=== PATIENT | female | born 1950 | race Caucasian/White ===

== ENCOUNTER 2018-05-24 13:05 | Outpatient (CLI) | payer MEDICARE, BC, SELFPAY ==
--- NOTE | 2018-05-24 14:08 | DI.US_ITS ---
SYMPTOMS/DIAGNOSIS: SWELLING, ? BAKERS CYST, DJD, CALF PAIN RT, M79.661 RIGHT LOWER LEG ULTRASOUND: No marshall's cyst is seen, however, there is fluid seen laterally near the head of the fibula. The deep venous system appears free of thrombus. No superficial thrombophlebitis is seen. IMPRESSION: No evidence of DVT. A 2 cm fluid collection is seen adjacent to the fibular head.
== END 2018-05-24 13:25 ==
PROVIDERS: PCP Internal Medicine; Visit Provider Internal Medicine
DX: R22.41 Localized swelling, mass and lump, right lower limb (principal); M79.661 Pain in right lower leg
CPT/HCPCS: 93971

== ENCOUNTER 2018-05-24 13:30 | Outpatient (REF) | payer MEDICARE, BC, SELFPAY ==
[2018-05-24 22:22] LABS: BUN 16 mg/dL (7-18); CREATININE 0.72 mg/dL (0.55-1.02); Calcium 9.2 mg/dL (8.5-10.1); Chloride 104 mmol/L (98-107); Glucose 87 mg/dL (70-100); Magnesium 2.1 mg/dL (1.8-2.4); Sodium 142 mmol/L (136-145)
== END 2018-05-24 13:50 ==
LOC: NCHCN 13:30
PROVIDERS: PCP Internal Medicine; Visit Provider Internal Medicine
DX: R25.2 Cramp and spasm (principal); I10 Essential (primary) hypertension
CPT/HCPCS: 80048; 83735

== ENCOUNTER 2018-05-28 10:07 | Outpatient (CLI) | payer MEDICARE, BC, SELFPAY ==
--- NOTE | 2018-05-28 09:51 | DI.RAD_ITS ---
SYMPTOM/DIAGNOSIS: RT KNEE PAIN RIGHT KNEE: There are no prior comparison exams There is severe narrowing of the medial femoral tibial joint space with a bone on bone appearance. There are prominent medial spurs as well as sclerosis and subchondral cyst formation, and varus angulation. Loose bodies are seen posteriorly. There are also severe degenerative changes with prominent spurring at the patellofemoral joint. There is a small joint effusion. IMPRESSION: Severe degenerative changes of the medial femoral tibial joint and patellofemoral joint.
== END 2018-05-28 10:27 ==
PROVIDERS: PCP Internal Medicine; Referring Provider Internal Medicine; Visit Provider Student in an Organized Health Care Education/Training Program
DX: M25.561 Pain in right knee (principal); M17.11 Unilateral primary osteoarthritis, right knee
CPT/HCPCS: 73562; 99202; 99214

== ENCOUNTER 2018-07-16 12:48 | Outpatient (REF) | payer MEDICARE, BC, SELFPAY ==
--- NOTE | 2018-07-16 11:20 | PAPFT_PTH ---
PATIENT: Josefa Hidalgo LOC: [facility] U#:[id number] AGE/SX: 67/F ROOM: RE07/16/[address]: Shelley Sanchez : 1950 BED: DIS: 07/16/2018 SPEC #: [id number] RECD: 07/16/18 18:13 STATUS: CARSONBrandon RECurt #: [id number] MATTHEW: 07/16/18 11:[address]: Shelley Sanchez DEPT: [facility] Cytology RECD BY: Shelly Hoang ENTERED: 07/16/18 18:14 SP TYPE: PAPFT OTHR DR: Jevon Restrepo Tissues: 1 - CX/ENDOCX FOR PAP SMEARS Procedures: PAP THIN PREP/UVM Screening HPV DNA PROBE Comments: [id number]
== END 2018-07-16 13:08 ==
LOC: LBN 12:48
PROVIDERS: PCP Internal Medicine; Visit Provider Obstetrics & Gynecology Gynecology
DX: R35.0 Frequency of micturition (principal); Z12.4 Encounter for screening for malignant neoplasm of cervix; Z11.51 Encounter for screening for human papillomavirus (HPV)
CPT/HCPCS: 88142; 87086; 87624

== ENCOUNTER 2018-07-17 00:46 | Outpatient (CLI) | payer MEDICARE, BC, SELFPAY ==
--- NOTE | 2018-07-17 10:55 | DI.MAMMO_ITS ---
SYMPTOM/DIAGNOSIS: SCREENING, Z12.31, PREVENTATIVE MEDICINE, Z00.00 MAMMOGRAMS: Mammograms were interpreted according to the usual protocol including computer analysis with CAD system, tomosynthesis and C view imaging. Comparison is made with 2010. The breasts are composed of heterogeneously dense fibroglandular tissue, breast density, category C. No suspicious masses or suspicious microcalcifications are seen. There has been no significant change. IMPRESSION: Category 1C, negative mammogram. Yearly screening mammography is recommended. [facility] ASSESSMENT OF FINDINGS: Negative. Category 1. Patient will receive a letter notifying them of these results. Bi-RADS category C. The breasts are heterogeneously dense, which may obscure small masses.
== END 2018-07-17 01:06 ==
PROVIDERS: PCP Internal Medicine; Visit Provider Obstetrics & Gynecology Gynecology
DX: Z12.31 Encounter for screening mammogram for malignant neoplasm of breast (principal)
CPT/HCPCS: 77063; 77067

== ENCOUNTER 2018-08-08 08:51 | Outpatient (CLI) | payer MEDICARE, BC, SELFPAY ==
[2018-08-08 10:35] LABS: HCT 42.9 % (36.0-46.0); HGB 14.2 g/dL (12.0-15.5); Mean Corp. HGB Concentration 33.1 g/dL (32.0-36.0); Mean Corpuscular Hemoglobin 31.2 pg (27.0-33.0); Mean Corpuscular Volume 94.3 fL (80-95); Mean Platelet Volume 11.2 fL (8.0-11.0); Platelet Count 168 x1000/uL (130-400); RBC 4.55 m/cumm (4.00-5.20); RBC Distribution Width 13.7 % (11.7-14.6); White Blood Cell Count 5.54 k/cumm (4.4-10.8)
--- NOTE | 2018-08-08 10:47 | W.PREOPHP ---
Assessment and Plan (1) Arthritis of right knee: Current visit: No Status: Chronic Plan: Bone length study x-rays were ordered at today's visit for preoperative planning. Patient had brought a disc containing left knee x-rays done at [facility]. Images were reviewed by Dr. Ames. He discussed left knee also has significant arthritis although patient is not as symptomatic on the left side. Discussed treatment options including corticosteroid injection versus surgical intervention. Offered patient opportunity to have corticosteroid injection in the left knee at time of surgery of right total knee replacement. Patient will decide on day of surgery if she wishes to receive corticosteroid injection in the left knee. Discussed surgery reviewing surgical technique, pertinent anatomy, recovery, benefits and risks including but not limited to risk of infection, blood clot, damage to soft tissue/nerve/blood vessels with patient and family members in detail. After discussion patient gave verbal understanding of risks and wants to proceed with scheduling surgery. Patient and her family members had opportunity to have questions answered to their satisfaction. Dr. Ames reviewed due to patient's deformity he will use OrthoAlign; educated that he may have to adapt surgical technique due to patient's deformity and likely MCL compromise. She will contact office if issues arise, patient will continue to be scheduled for right total knee replacement with Dr. Ames on 08/14/18. Ms. Hidalgo is a 68-year-old female who presents to clinic with her partner, Anuj, and daughter, Leydi, for pre-operative visit for scheduled right TKA with Dr. Ames on 08/14/18. She has previous history of right knee arthroscopy to repair her meniscus done in 2000. Following that surgery she felt her right knee was improved but she was not without occasional bouts of right knee discomfort. However, she suffered increased right knee pain following an injury in February 2018. Injury occurred when she was working up to her waist in water using a metal rake to clear weeds out of [place]. All of a sudden her right foot got caught in the muck, she turned and tried to pull her shoe but had immediate pain in her right knee. Since that time she has continued to have right knee pain that occurs diffusely along medial and lateral aspects of the joint as well as diffusely along the posterior aspect of the joint. Occasionally she will experience calf cramping when her pain is severely aggravated. Prior to presentation to orthopedic clinic she had attended physical therapy for approximately 2 months and was fitted with KT tape and a patella brace due to possible patella maltracking. Attending physical therapy helped to reduce the frequency of her flared pain but did not fully resolve her symptoms. Patient continues to have pain and restricted range of motion that is aggravated by activity such as prolonged walking. On occasion she has heard a grinding sensation elicited with walking and occasional knee swelling. She has been taking Ibuprofen 600 mg qAM with slight pain alleviation. Patient denies symptoms of catching, giving out, numbness or tingling. X-rays obtained at patient's orthopedic appointment revealed severe right knee DJD which Dr. Ames described as notable deformity with scalloping and loss of medial tibia. Due to patient's continued right knee pain and severe right knee DJD patient elected to proceed with surgical intervention. Pertinent Surgical Information Patient's initial referral from primary care provider listed cardiac murmur under past medical history. Patient reports in 2014 she had a different provider conduct her physical and thought they had appreciated murmur. Patient reports she had cardiac work-up in the office including labs and EKG which were negative for acute abnormalities. Since that time patient's primary care provider has not appreciated a cardiac murmur nor requested cardiac consult. She does describe rare episodes of classic acid reflux, denies taking regular medication. Patient denies all cardiac symptoms at today's visit. Denies past medical history of: stroke, cardiac issues, angina, asthma, COPD, sleep apnea, renal issues, liver issues, hepatitis, gastrointestinal issues, ulcers, hyperlipidemia, bleeding disorders, seizures, migraines, anxiety, depression, diabetes, autoimmune disorders, thyroid issues Denies prior complications from surgery or anesthesia. Review of Systems Constitutional Denies fever(s), Denies frequent falls and Denies headache(s) Eyes Denies change in vision ENT Denies dizziness, Denies ear discharge, Denies headache(s), Denies epistaxis, Denies nasal congestion, Denies nasal discharge and Denies sore throat Cardiovascular Denies chest pain, Denies rapid heart rate, Denies edema, Denies irregular heart rhythm, Denies dyspnea, Denies dyspnea on exertion, Denies orthopnea, Denies paroxysmal nocturnal dyspnea and Denies slow heart rate Respiratory Denies cough, Denies excessive phlegm production, Denies dyspnea, Denies dyspnea on exertion and Denies wheezing Gastrointestinal Denies abdominal pain, Denies melena, Denies hematochezia, Denies constipation, Denies diarrhea, Denies nausea and Denies vomiting Genitourinary Denies hematuria, Denies dysuria and Denies urinary urgency Musculoskeletal Reports as per HPI, Denies numbness and Denies tingling Neurologic Denies dizziness, Denies frequent falls, Denies headache(s), Denies numbness and Denies tingling Psychiatric Denies anxiety and Denies depression Allergic/Immunologic Denies wheezing PFSH Medical History Osteopenia (Chronic) Essential hypertension (Chronic) Cystocele (Chronic) Arthritis of right knee (Chronic) Urine incontinence (Acute) Surgical History S/P right knee arthroscopy (Acute) Family History Mother Heart disease Hypertension Father Heart disease Brother Heart disease Brother Heart disease Brother Diabetes Heart disease Brother Heart disease Social History household members: spouse marital status details: partner - Anuj number of children: 2 current occupational status: retired Smoking and Tabacco status: Never alcohol intake: current alcohol intake frequency: holidays/special occasions only substance use type: does not use What is your relationship status?: living with partner Panel score (0-1 are the most socially isolated patients): 1 Seatbelt use: always Female Reproductive History Menstrual Menopause type: natural History History 2 Para Hx # Term Pregnancies 2 Multiple births Hx # Pregnancies Ectopic pregnancies AB induced Hx Number of Living Children AB spontaneous Meds Home Medications Medication Instructions Recorded Confirmed Type ibuprofen 200 mg capsule 200 mg PO QID PRN 05/28/18 08/08/18 History amlodipine 5 mg tablet 5 mg PO DAILY 07/16/18 08/08/18 History herbal complex no.174 [Echinacea 1 drp PO DAILY 08/08/18 08/08/18 History and Goldenseal] multivitamin 1 tab PO DAILY 08/08/18 08/08/18 History Allergies Allergy/AdvReac Type Severity Reaction Status Date / Time lisinopril AdvReac Mild cough Verified 08/08/18 21:42 Exam Const General: cooperative and no acute distress HENMT Head: normal to inspection, normocephalic and atraumatic Ears: external ears normal General nose exam: external nose normal and no nasal discharge Face and sinus: face symmetric Eyes General: appearance normal, both eyes and all related structures Neck Neck: trachea midline Lymphatic: no lymphadenopathy noted Resp Effort & Inspection: normal respiratory effort and able to speak in complete sentences Auscultation: clear to auscultation bilaterally, no rales, no rhonchi and no wheezes Cardio Heart Sounds: S1 normal, S2 normal, no murmurs and no rubs Skin General skin exam: no rashes or lesions noted Extrem Other: Right knee examination: Tenderness to palpation along medial joint line. Skin is intact without signs of erythema or calor. There is slight edema noted inferior to joint line. No signs of effusion are noted. Active range of motion is short of full extension by 10 degrees and yields flexion of 105 degrees with crepitus and discomfort elicited. Knee is stable to valgus and varus stress. Muscle strength was 5 out of 5 and did not elicit pain. Results Labs : 08/08/18 10:07 08/08/18 10:07 Laboratory Results - last 24 hr 08/08/18 10:07 WBC 5.54 RBC 4.55 Hgb 14.2 Hct 42.9 MCV 94.3 MCH 31.2 MCHC 33.1 RDW 13.7 Plt Count 168 MPV 11.2 H
[2018-08-08 11:19] LABS: Anion Gap 6.4 mmol/L (3-11); BUN 16 mg/dL (7-18); CO2 30.6 mmol/L (21.0-32.0); CREATININE 0.73 mg/dL (0.55-1.02); Calcium 9.2 mg/dL (8.5-10.1); Chloride 104 mmol/L (98-107); Glucose 85 mg/dL (70-100); Potassium 4.3 mmol/L (3.5-5.1); Sodium 141 mmol/L (136-145)
== END 2018-08-08 09:11 ==
PROVIDERS: PCP Internal Medicine; Visit Provider Student in an Organized Health Care Education/Training Program
DX: M25.561 Pain in right knee (principal); M17.11 Unilateral primary osteoarthritis, right knee; Z01.818 Encounter for other preprocedural examination; I10 Essential (primary) hypertension
CPT/HCPCS: 36415; 80048; 85027

== ENCOUNTER 2018-08-08 11:19 | Outpatient (CLI) | payer MEDICARE, BC, SELFPAY ==
--- NOTE | 2018-08-08 11:16 | DI.RAD_ITS ---
SYMPTOM/DIAGNOSIS: PREOP FOR RT KNEE REPLACEMENT LEG LENGTH: In the right knee, there is marked narrowing of the medial femoral tibial joint space with deformation of the articular surfaces. Periarticular spurring is also noted. In the left knee, there is moderately severe narrowing in the medial femoral joint space with periarticular spurring seen both medially and laterally. The right lower extremity measures 81.1 cm. The left lower extremity measures 81.6 cm. IMPRESSION: Bilateral osteoarthritis of the knees.
== END 2018-08-08 11:39 ==
PROVIDERS: PCP Internal Medicine; Visit Provider Physician Assistant
DX: M17.0 Bilateral primary osteoarthritis of knee (principal); M21.70 Unequal limb length (acquired), unspecified site
CPT/HCPCS: 36415; 80048; 85027; 77073

== ENCOUNTER 2018-08-14 07:38 | Inpatient (IN) | payer MEDICARE, BC, SELFPAY ==
[2018-08-14] VITALS (11 sets, daily range): BP systolic 93–139; BP diastolic 45–84; PULSE 58–79; RESP 11–19; TEMP 36.1–36.7; O2SAT 92–96
[2018-08-14] MEDS: Acetaminophen 500 MG TAB 1000 MG PO ×3 (06:35→19:31)
[2018-08-14] MEDS: oxyCODONE-CR 10 MG TABCR PO (06:35)
[2018-08-14] MEDS: Gabapentin 300 MG CAP PO ×2 (06:35→22:43)
[2018-08-14] MEDS: Celecoxib 200 MG CAP 400 MG PO (06:35)
[2018-08-14] MEDS: Lactated Ringers 1,000 ML 80 ML IV ×3 (06:38→17:53)
[2018-08-14] MEDS: Bupivacaine LIPOSOME/PF 133 MG/10 ML VIAL IJ ×2 (07:25→08:59)
[2018-08-14] MEDS: Bupivacaine 0.5% Pres-Free 30 ML VIAL (07:25)
[2018-08-14] MEDS: methylPREDNISolone ACETATE 80 MG/ML VIAL (07:51)
[2018-08-14] MEDS: Bupivacaine 0.25% Pres-Free 30 ML VIAL ×2 (07:51→08:59)
[2018-08-14] MEDS: Normal Saline 50 ML (08:59)
[2018-08-14] MEDS: Ketorolac 30 MG/ML VIAL (08:59)
--- NOTE | 2018-08-14 14:16 | IN_ITS ---
Date of service: 08/14/18 Time of Service: 13:45 PT Notes Inpatient Physical Therapy Evaluation Date: 08/14/18 Referring Doctor: Dr. Ames PT Orders: PT CONSULT: s/p right TKA Precautions: fall, standard Patient Profile/Admitting Diagnosis: Patient admitted status post right TKA, performed earlier today. PMHX: Hypertension. Osteopenia. Patient is status post partial medial meniscectomy performed in 2000 Social History/Home Situation: Patient lives with her significant other in a multilevel home. She has several steps to enter, although has had a ramp installed, which she plans to use upon return home. She has had extensive snow removal performed to allow her to get her car close to her home. She also has a niece who is a home health physical therapist, and will be meeting her at the home to assist her in upon discharge. She has been performing an independent exercise program at outpatient PT up until surgery. She normally ambulates independently and is active in the community. Equipment Owned/DME: None Subjective: Josefa states that she is feeling great. She has no pain to speak of, and is anxious to get up and test her new knee. Objective: General Observation: Resting in bed with IV and LUE, Feldman catheter in place, Lacho wrap to right lower extremity, Cryo/Cuff to right knee Mental Status: A and O x3 Pain: 0/10 ROM: Right Upper Extremity: WFL Left Upper Extremity: WFL Right Lower Extremity: Right knee range of motion allows -5 degrees extension to 80 degrees flexion. Left Lower Extremity: WFL. Left knee range of motion was not assessed, with patient reporting injection performed during surgery. Strength: Right Upper Extremity: WFL Left Upper Extremity: WFL Right Lower Extremity: Patient is able to perform SLR with minor extension lag. She easily performs L AQ with right quad strength at least 3/5. Ankle dorsiflexion is 3/5 or greater. Left Lower Extremity: WFL Sensation: Intact throughout the distal RLE Bed Mobility/Transfers: Supine to sit: Supervision with head of bed at 30 degrees Sit to stand: Supervision Stand to sit: Supervision Bed to chair: Supervision with FW W Gait: Patient ambulates 100 feet with FW W and contact-guard. She requires intermittent cues for gait mechanics and equipment management. Stairs: Patient manages therapeutic stairs (6 inches x4, 4 inches x3) with bilateral upper extremity support to rails, step-to pattern and contact-guard. He requires cues for technique. Balance: Static Sitting: Normal Dynamic Sitting: Normal Static Standing: Good Dynamic Standing: Fair Special Tests: Mobility Limitations Standardized Measure [facility] AM-PAC 6 clicks Basic Mobility Inpatient Short Form: Raw Score: 19 CMS Score: 42% deficit Informed Consent/Education: Patient instructed in purpose of PT consult and plan of care. Patient was instructed in early therapeutic exercises, consisting of quadricep setting activities, SLR and L AQ. She was instructed in positioning to avoid prolonged positioning in flexed position, and demonstrates good understanding. She does not have her postop packet with her, although her partner will be bringing that in this evening. Assessment: Patient is a 68 year old female referred to physical therapy services with the diagnosis of right knee OA, status post right TKA performed earlier today. Patient presents with clinical signs and symptoms consistent with postop status, as demonstrated by the following impairment level findings: 1. Decreased right knee range of motion 2. Decreased right lower extremity strength 3. Decreased balance 4. Decreased activity tolerance Impairments are contributing to the following functional limitations: 1. Unable to independently manage stairs 2. Unable to tolerate community distance ambulation Patient is assessed as Low [id number] based on the following: History: Healthy and active 68-year-old female with right knee OA, status post right TKA performed earlier today. Patient has made several adjustments in her home situation to allow for easy transition back home with assistance from her partner. She does have significant osteoarthritis in the left knee, which may pose as a complicating factor in her recovery. Examination: Functional limitations as noted above Presentation: Stable Decision Making: Low complexity Goals: Goals X1 week 1. Supine-Sit: Supervision 2. Sit-Supine: Supervision 3. Sit-Stand : Supervision 4. Stand-Sit: Supervision 5. Bed-Chair: Supervision with FWW 6. Chair-Bed : Supervision with FWW 7. Gait : Supervision with FWW x 150' 8. Stairs: Supervision with bilateral upper extremity support to rails 9. Independent with home exercise program Plan of Care/Treatment Plan: 1-2x/day, 7 days/week x 1 week. Plan of care has been reviewed with the PHARMACY CUSTOMER CARE SPECIALIST providing the service under Physical Therapy direction. Initiate Physical Therapy intervention for strengthening, bed mobility, transfers, gait, stairs, balance training, use of assistive device. DISCHARGE RECOMMENDATIONS: Home with FW W TREATMENT CODE/TIME: 145?215 ([id number])
[2018-08-14] MEDS: Normal Saline Flush 10 ML SYR IV (19:31)
[2018-08-14] MEDS: Aspirin E.C. 81 MG TABEC PO (19:31)
[2018-08-14] MEDS: Celecoxib 100 MG CAP 200 MG PO (19:31)
--- NOTE | 2018-08-14 21:16 | W.PM.OP ---
Date of service: 08/14/18 Time of Service: 10:16 Operative Note DATE OF PROCEDURE: 08/14/18 PRE-OP DIAGNOSIS: Right Knee Arthritis POST-OP DIAGNOSIS: same PROCEDURE: Right Total Knee Arthroplasty with Intraoperative Navigation SURGEON: Maximiliano Ames DIGITAL PHOTO PRINTER: Delia Nielsen ANESTHESIA: regional and spinal ESTIMATED BLOOD LOSS: 200 PATHOLOGY: none sent TOURNIQUET TIME: 27 COMPLICATIONS: None Patient was transported to: PACU Patient's condition: stable Implants: 1. Depuy Attune Posterior Stabilized Femoral Component, Size 4 2. Depuy Attune Fixed Platform Tibial Component, Size 3 3. Depuy Attune 4 x 10 mm fixed, Stabilized Poly 4. Depuy Attune Patellar Component, Size 35 mm Indications: I have seen Josefa in clinic for symptoms of knee arthritis, confirmed with radiographic findings. Josefa has exhausted nonoperative methods and was having significant limitations in daily function and desired better function and less pain. I discussed the technical details of a knee replacement. I explained the risks of the procedure to include, but not limited to, bleeding, infection, pain, stiffness, fracture, damage to nerves and vessels, damage to muscles and tendons, loosening, need for repeat procedure, blood clot and cardiopulmonary demise. Despite these risks, she elected to proceed. Findings: There was significant signs of arthritis throughout the knee. The medial tibia was scalloped with a significant deformity centrally within the proximal, medial tibia. Procedure Description: Josefa was greeted in the preoperative holding area where the correct side was identified and marked. The consent was reviewed with the patient and signed. The history and physical was updated. All questions were answered. Preoperative mediacations were administered: Acetaminophen 1000mg, Celebrex 400mg, Gabapentin 300mg, and Oxycontin 10mg. An adductor canal block was then administered by the anesthesia team in the PACU. She was taken back to the operating room. A spinal anesthestic was then administered. The patient was placed into the supine position on the operating room table. A nonsterile tourniquet was placed high onto the leg but only used for cementing. Posts were placed for positioning during the procedure. All bony prominences were well padded. Prophylactic antibiotics in the form of cefazolin were administered. 1g of Tranxemic Acid was given intravenously within 30 minutes of incision. The right leg was then prepped with Chloraprep and draped in a standard fashion with impervious stockinette and extremity drape with Iodine impregnated skin protection. A timeout to confirm correct identity, side and site, procedure, allergies, anesthesia, and medical concerns was performed. With the knee in some flexion, a midline incision was made overlying the knee. Full thickness skin flaps were raised once the extensor mechanism was encountered. These were raised medially and laterally. Any bleeding was controlled with electrocautery. Once the extensor mechanism was fully exposed, a medial parapatellar arthrotomy was performed in a flexed position. All bleeding from the arthrotomy and the geniculate arteries was coagulated. A medial subperiosteal peel was performed with electrocautery to the midcoronal plane. Due to the significant varus deformity the entire medial tibial plateau was exposed. The fat pad was removed while keeping the patellar tendon protected. The anterior distal femur synovium was removed for later visualization. The ACL and PCL were resected and the anterior horn of the lateral meniscus was transected. The knee was then flexed with the patella everted. Large osteophytes from the tibia were removed. Large osteophytes from the femur were removed. A single starting pin was then placed 1cm anterior to the PCL insertion and the notch in the direction of the femoral head. The OrthoAlign device was applied over the pin. It was oriented to be in line with the epicondylar axis and the trochlear groove. It was then pinned into place. The navigation computer was then turned on and calibrated. The distal femur cut was set at 0 degrees varus/valgus and 2.5 degrees flexion. The distal femur cutting guide then was positioned for a 11 mm cut. The distal femur was cut with an oscillating saw while protecting the soft tissues. The tibia was then addressed. The OrthoAlign device was placed over the tibial tubercle and medial tibia and secured into position. Once again, OrthoAlign was calibrated and then set for a 0 degree varus/valgus cut and 3 degrees of posterior slope. With this locked into position, the cut thickness stylus was used to assess cut thickness. The medial side, most involved side, was set for a 2mm cut. The medial, proximal tibia was noted to be scalloped where the central portion of the proximal, medial tibia was worn into the tibia making the cut quite on balance. The guide was then held in position and pinned into place with 2 additional pins and a cross pin for stability. The medial and lateral collateral ligaments were protected and the cut was performed. With this completed, it was assessed and noted to be of appropriate dimensions. The guide and OrthoAlign was removed. A spacer block was inserted and the knee was brought into extension. The 8 mm spacer block provided full extension, without hyperextension and with stability of both the medial and lateral collateral ligaments was assessed. The pins from the femur and the tibia were then removed. The distal femur was then sized. The anterior stylus was placed onto the lateral ridge of the anterior femur. This indicated a size 4 femur. The external rotation of the guide was adjusted to 5 degrees to match the epicondylar axis, perpendicular to [place]?s line. The 4-in-1 cutting guide was the placed. The posterior medial femur cut was evaluated and appeared of good thickness. The spacer block was inserted underneath the cutting guide and stability was confirmed in 90 degrees of flexion. An zoran wing was used to confirm appropriate position of the anterior cut to avoid notching. This cutting guide was ensured to be flush on the cut surface and then pinned into place with headed pins. While protecting the soft tissues, quad tendon, and collateral ligaments, the anterior and posterior cuts were performed with a saw. The central two pins were removed and the posterior and anterior chamfers were cut next. The notch-cutting guide was placed. This was pinned to lateralize the femoral component as much as possible while keeping it flush on the cut surface. This was then pinned into position. A reciprocating saw was used to make the notch cut. A rasp smoothed the cut surfaces. A trial posterior stabilized femoral component was then inserted, impacted down to the cut surfaces, and the lug holes were drilled. A provisional trial tibial component was placed and the knee was brought through range of motion. The polyethylene was trialed until there was good flexion and extension with excellent stability to the medial and lateral collaterals. The patella was tracking without thumbs. The tibial cut surface was fully exposed. The medial and lateral menisci were removed. The tibia was then sized as a 3. The tibia had been previously marked during trialing to correspond to the center of the tibial component to help with rotation. The trial was aligned to this delia, approximately rotated to the medial 1/3rd of the tibial tubercle. The trial was pinned into place. The tibia was prepared with a reamer and a keel punch. The knee was then brought into extension and the patella was measured as 26 mm. Using the patellar clamp and cut guide, this was resected to a flat surface with at least 13mm of thickness remaining. The size 35 mm patella fit the best. This was oriented and then clamped into position. The lugs were drilled. The trial components were removed. The final components, except for the polyethylene were opened on the back table. The periosteal and capsular tissues, especially posteriorly, around the knee were then systematically injected with a periarticular cocktail consisting of 50cc 0.25% Marcaine, 30mg Ketorolac, 20cc of Exparal and 50cc of injectable saline. The tourniquet was then inflated to 275mmHg. The knee was thoroughly irrigated with a pulse lavage and dried. On the back table, with the implants opened, the cement was mixed. 2 batches of antibiotic laden cement were prepared with vacuum assistance. After the cement was ready a small amount was placed on to the back side of the tibial component at the keel. A small amount was placed onto the posterior flange of the femur. Cement was manual pressurized and impregnated into the cut surface of the tibia. The tibial component was then inserted into the cut surface and impacted into position. Excess cement was removed and the component was reimpacted. Again, excess cement was removed and our attention was then turned to the femur. The femoral cut surface was once again dried and cement was manually impacted into the cut surface. The femoral component was lined with the lug holes and impacted. Excess cement was removed. It was ensured to be down against the cut surface. The trial polyethylene was then inserted and the leg was brought out into full extension for the duration of the cement curing process, approximately 15min. Cement was lastly manually impacted into the cut surface of the patella and the patellar button was clamped into position and held. During this process attention was turned to the gutters of the knee and for all interfaces for any excess cement. After the cement had finally cured, approximately 15min, the clamp was removed from the patella and the knee was taken through range of motion. A size 10 mm polyethylene component provided the best range of motion and stability with less than 2mm gapping with medial and lateral stress and full extension without significant hyperextension. The patella was tracking with a no-thumbs technique. The trial poly was removed and once again the knee was checked for any loose, excess, or errant cement. The poly component was then inserted and impacted into position after cleaning and drying the tibial tray. The capsule was then reapproximated with a No. 1 Vicryl at multiple locations. The capsule was finally closed with a No. 2 Stratafix, barbed suture. The tourniquet was then released and the arthrotomy appeared watertight without significant bleeding. The second dosing of 1g TXA was started. Deep tissues were then reapproximated with 0 Vicryl and 2-0 Vicryl. The skin was closed with a running 3-0 Monocryl in a subcuticular fashion. This was reinforced with skin glue. A Mepilex silver dressing was applied along with a dgek-yf-eoupf DAVEY wrap. A CryoCuff was applied. Josefa was transferred to the hospital bed without difficulty an suffering no apparent complication. Josefa has a good prognosis. Physical therapy will start today and without restrictions, weight-bearing as tolerated. Aspirin 81mg BID will be used for DVT prophylaxis.
[2018-08-15 03:25] VITALS: BP 116/75; PULSE 70; RESP 16; TEMP 36.6; O2SAT 94
[2018-08-15] MEDS: Normal Saline Flush 10 ML SYR IV (03:54)
[2018-08-15] MEDS: HYDROmorphone 2 MG/ML VIAL 0.5 MG IVP (03:54)
[2018-08-15] MEDS: Lactated Ringers 1,000 ML 80 ML IV (07:03)
[2018-08-15 07:50] VITALS: BP 133/70; PULSE 69; RESP 19; TEMP 37.2; O2SAT 95
[2018-08-15] MEDS: amLODIPine 5 MG TAB PO (08:55)
[2018-08-15] MEDS: Celecoxib 100 MG CAP 200 MG PO (08:55)
[2018-08-15] MEDS: Multivitamin TAB 1 TAB PO (08:56)
[2018-08-15] MEDS: Pantoprazole 40 MG TABCR PO (08:56)
[2018-08-15] MEDS: Docusate Sodium 100 MG CAP PO ×2 (08:56→13:42)
[2018-08-15] MEDS: Acetaminophen 500 MG TAB 1000 MG PO ×2 (08:56→13:39)
[2018-08-15] MEDS: Aspirin E.C. 81 MG TABEC PO (08:57)
--- NOTE | 2018-08-15 11:17 | INDS_ITS ---
Date of service: 08/15/18 Time of Service: 10:00 PT Notes Date: 08/15/18 Referring Doctor: Dr. Ames PT Orders: PT CONSULT: s/p right TKA Precautions: fall, standard Treatment Dates: 08/14/18-08/15/18 Patient Profile/Admitting Diagnosis: Patient admitted status post right TKA, performed yesterday. She's participated in 2 PT sessions in the past two days. PMHX: Hypertension. Osteopenia. Patient is status post partial medial meniscectomy performed in 2000 Social History/Home Situation: Patient lives with her significant other in a multilevel home. She has several steps to enter, although has had a ramp installed, which she plans to use upon return home. She has had extensive snow removal performed to allow her to get her car close to her home. She also has a niece who is a home health physical therapist, and will be meeting her at the home to assist her in upon discharge. She has been performing an independent exercise program at outpatient PT up until surgery. She normally ambulates independently and is active in the community. Equipment Owned/DME: [facility] Subjective: Josefa states that she is feeling great. She's out walking the halls with nursing at initiation of session, and states that she walked with nursing last night as well. Objective: General Observation: IV in LUE, Feldman catheter in place, Lacho wrap to right lower extremity Mental Status: A and O x3 Pain: 0/10 ROM: Right Upper Extremity: WFL Left Upper Extremity: WFL Right Lower Extremity: Right knee range of motion allows 0 degrees extension to 90 degrees flexion. Left Lower Extremity: WFL. Left knee range of motion was not assessed, with patient reporting injection performed during surgery. Strength: Right Upper Extremity: WFL Left Upper Extremity: WFL Right Lower Extremity: Patient is able to perform SLR without extension lag. She easily performs L AQ with right quad strength at least 3/5. Ankle d orsiflexion is 3/5 or greater. Left Lower Extremity: WFL Sensation: Intact throughout the distal RLE Bed Mobility/Transfers: Supine to sit: Supervision with head of bed at 30 degrees Sit to stand: independent Stand to sit: independent Bed to chair: Supervision with FW W Gait: Patient ambulates 100 feet x 2 with FW W and supervision. She requires intermittent cues for gait mechanics, demonstrating good step-through pattern. Stairs: Patient managed therapeutic stairs on 08/14/17 as follows: (6 inches x4, 4 inches x3) with bilateral upper extremity support to rails, step-to pattern and contact-guard. Balance: Static Sitting: Normal Dynamic Sitting: Normal Static Standing: Good Dynamic Standing: Fair Treatment: This session consisted of reevaluation, followed by noted above. Patient was instructed in the following activities, which were also indicated in postop packet for home completion for 10 repetitions, 3 times per day: 1. Ankle pumps 2. Quad sets 3. Glutes sets 4. SLR 5. LAQ 6. Heel slide Assessment: Patient is a 68 year old female referred to physical therapy services with the diagnosis of right knee OA, status post right TKA performed 08/14/18. She has made excellent gains in her mobility and safety, and is now appropriate for discharge home as all rehab goals have been met. Patient expresses her desire to participate in home health PT, which will be beneficial for improvements IN range of motion, strength and functional mobility after total knee replacement. Goals: Goals X1 week 1. Supine-Sit: Supervision (met) 2. Sit-Supine: Supervision(met) 3. Sit-Stand : Supervision(met) 4. Stand-Sit: Supervision(met) 5. Bed-Chair: Supervision with FWW(met) 6. Chair-Bed : Supervision with FWW(met) 7. Gait : Supervision with FWW x 150'(met) 8. Stairs: Supervision with bilateral upper extremity support to rails(met) 9. Independent with home exercise program (met) Plan of Care/Treatment Plan: D/C from PT in acute care setting DISCHARGE RECOMMENDATIONS: Home without equipment needs. Recommend PT TREATMENT CODE/TIME: 10:00-10:30 ([id number], [id number]) Jessica Duran, PT, DPT [facility]
[2018-08-15 11:50] VITALS: BP 115/62; PULSE 75; RESP 18; TEMP 37.3; O2SAT 96
--- NOTE | 2018-08-15 12:24 | W.PM.DS.N ---
Date of service: 08/15/18 Time of Service: 12:24 DS: Diagnosis Discharge Diagnosis (1) Arthritis of right knee: Status: Chronic Discharge Plan Disposition Patient Disposition: HOME W/HOME HEALTH SERVICE Condition: Good Discharge Details Reason For Visit: RIGHT KNEE DJD Admit Date/Time: 08/14/18 07:38 Admit Provider: Maximiliano Ames Attending Provider: Maximiliano Ames Primary Care Provider: Jevon Restrepo Hospital Course Hospital Course: Patient was admitted to the medical/surgical floor following the procedure. It was tolerated well without any notable medical, surgical, or anesthetic complications. Mobilization began postoperatively. The bright catheter was removed and voiding spontaneously. Vitals were stable. Physical therapy worked with the patient and was cleared for discharge home. No acute medical issues. Home Meds and New Rx's Prescriptions: New acetaminophen 500 mg tablet 1,000 mg PO Q8H PRN (Reason: pain) Qty: 90 RF: 3 ibuprofen 600 mg tablet 600 mg PO TID PRNQty: 90 RF: 3 tramadol 50 mg tablet 50 mg PO Q6H PRN (Reason: pain) Qty: 8 RF: 0 Continued amlodipine 5 mg tablet 5 mg PO DAILY RF: 0 multivitamin Tablet 1 tab PO DAILY RF: 0 Echinacea and Goldenseal 450 mg Capsule 1 drp PO DAILY RF: 0 Discontinued ibuprofen 200 mg capsule 200 mg PO QID PRNRF: 0 Discharge Instructions Instructions: Knee Replacement (DC) Additional Instructions: Dr. Ames?s Total Knee Discharge Instructions Activity: The most important activity is to walk. You should try to take short walks a few times a day. It is important that when resting you work on keeping the knee straight. Avoid putting a pillow behind the knee as this will encourage flexion. Work on range of motion exercises as provided by Physical Therapy. - You should wear the EVELINE hose on both legs for 2-4 weeks. Dressing: The initial DAVEY wrap may come off on the day after discharge (08/16) or sooner if desired. Keep the surgical dressing in place for at least one week. After the first week it may be removed and replace with light gauze and tape or nothing. It may get wet after 3 days but avoid soaking the dressing. If it gets wet, just lightly pat dry. Medications: - You should take Tylenol and anti-inflammatory (Ibuprofen) as your primary pain control medications - You have been prescribed a stronger pain medication (Tramadol) for breakthrough pain, take as needed as prescribed. - You will be taking Aspirin 81mg twice a day for DVT prevention unless instructed otherwise. - If you have constipation you should take Colace or Miralax (both [id number]). It takes most people 3-4 days to have a bowel movement. Follow-up: 2 weeks 1. Encounter Date and Reason I certify that JOSEFA LUCERO was seen by Maximiliano Ames MD on 08/15/18 and that I had a [id number] encounter with this patient that meets the physician face to face encounter requirements. 2. Clinical Findings Supporting Skilled Need and Homebound Status I certify that home health services are medically necessary, include either intermittent intermediate and/or physical/speech therapy, and that this patient is homebound in that absences from the home require considerable and taxing effort and are infrequent or of short duration, or are attributable to the need to receive medical care. [X] (a) Attached documentation from encounter provides clinical findings supporting skilled need and homebound status (including what assistance patient requires to leave the home). The encounter with the patient was in whole, or in part, for the following medical condition, which is the primary reason for home health care: RIGHT KNEE DJD Usp: Physical Therapy: Josefa would benefit from home based physical therapy to address her significant limitations in gait, mobility, and strength. She is s/p R TKA and had significant preoperative limitations. She should focus on ambulation, gait training, and knee extension. Speech Therapy: Homebound: Josefa is homebound due to her recent surgery resulting in weakness and gait alterations. She is unable to leave her home unassisted. 3. Certification and Authentication I certify that I composed the above information based on my clinical judgement relating to this patient's medical condition and, if applicable, clinical findings communicated to me by the NPP or inpatient physician who performed the Home Health Referral. All further orders will be obtained through Dr. Ames Stand Alone Forms: Nursing Discharge Form Referrals: Maximiliano Ames MD [ [facility] STAFF PHYSICIAN] - 08/29/18 2:45 pm Activity:: Activity as Tolerated Equipment/Supplies:: Walker Diet:: As Tolerated Discharge Orders Discharge Orders: Discharge Order (Routine); Ordered 08/15/18 Ordered By: Maximiliano Ames DS: Data Vitals/I&O Vitals and I&O: Vital Signs Temperature 37.2 C 08/15/18 07:50 Temperature Source Tympanic 08/15/18 07:50 Pulse 69 08/15/18 07:50 Pulse Rhythm Regular 08/14/18 11:21 Respiratory Rate 19 08/15/18 07:50 Respiratory Effort 08/14/18 19:33 Respiratory Depth Normal 08/14/18 19:33 Respiratory Pattern Normal 08/14/18 19:33 Blood Pressure 133/70 08/15/18 07:50 Pulse Oximetry 95 08/15/18 07:50 Respiratory End-tidal CO2 14 08/14/18 10:20 Oxygen Delivery Method Room Air 08/15/18 07:50 Oxygen Flow Rate 0 08/15/18 07:50 Pain Level 6 08/15/18 08:56 Comment 08/15/18 03:25 Intake & Output 08/14/18 08/15/18 08/15/18 23:59 11:59 23:59 Intake Total 2401.333 / 4621.333 3329.333 / 3329.333 Output Total 3050 / 3350 2650 / 2950 300 / 2950 Balance -648.667 / 1271.333 679.333 / 379.333 -300 / 379.333 Intake: IV 681.333 / 2301.333 1489.333 / 1489.333 Oral 1720 / 2320 1840 / 1840 Output: Urine 3050 / 3150 2650 / 2950 300 / 2950 Other: Urine Color Yellow Yellow Yellow Urine Appearance Clear Clear Clear Urine Odor None Comment Void x1 in the toilet. Voiding Methods Toilet COUNT INCLUDES THE [facility] Medical History Osteopenia (Chronic) Essential hypertension (Chronic) Cystocele (Chronic) Arthritis of right knee (Chronic) Urine incontinence (Acute) Surgical History S/P right knee arthroscopy (Acute) Family History Mother Heart disease Hypertension Father Heart disease Brother Heart disease Brother Heart disease Brother Diabetes Heart disease Brother Heart disease Social History household members: spouse marital status details: partner - Anuj number of children: 2 current occupational status: retired Smoking and Tabacco status: Never alcohol intake: current alcohol intake frequency: holidays/special occasions only substance use type: does not use What is your relationship status?: living with partner Panel score (0-1 are the most socially isolated patients): 1 Seatbelt use: always Female Reproductive History Menstrual Menopause type: natural History History 2 Para Hx # Term Pregnancies 2 Multiple births Hx # Pregnancies Ectopic pregnancies AB induced Hx Number of Living Children AB spontaneous
--- NOTE | 2018-08-15 14:46 | PDOC.CMPRO ---
- If Service Date Differs Date of service: 08/15/18 Time of Service: 14:46 Care Management Progress Note CM met with patient and her spouse in the room. Josefa is alert and engaged she states that she is ready to be discharged home. She has a walker at home she does not need any additional equipment. She will have new home health services for PT and OT. CM contacted home health and provided update. Josefa states she lives on one floor and will not need to do stairs. Her spouse Anuj will transport her home at time of discharge. CM provided education related to discharge plan and follow up. Education related to ask me three and self management. A: Josefa was admitted with a right total knee r/t OA. P: Josefa is being discharged home today, with new home health services PT/OT. CM contacted [facility] [place] and provided referral.
--- NOTE | 2018-08-15 15:00 | CMPROGNOTE_ITS ---
- If Service Date Differs Date of service: 08/15/18 Time of Service: 14:46 Care Management Progress Note CM met with patient and her spouse in the room. Josefa is alert and engaged she states that she is ready to be discharged home. She has a walker at home she does not need any additional equipment. She will have new home health services for PT and OT. CM contacted home health and provided update. Josefa states she lives on one floor and will not need to do stairs. Her spouse Anuj will tr ansport her home at time of discharge. CM provided education related to discharge plan and follow up. Education related to ask me three and self management. A: Josefa was admitted with a right total knee r/t OA. P: Josefa is being discharged home today, with new home health services PT/OT. CM contacted [facility] and provided referral.
== END 2018-08-15 15:58 | disposition home health service (06) | DRG 470 ==
LOC: MS 09:45
PROVIDERS: Admitting Provider Student in an Organized Health Care Education/Training Program; PCP Internal Medicine; Visit Provider Student in an Organized Health Care Education/Training Program
PROC: 0SRC0J9 Replacement of Right Knee Joint with Synthetic Substitute, Cemented, Open Approach (ICD-10-PCS; CPT 27447; principal; 2018-08-14 07:30)
PROC: 0SRC0J9 Replacement of Right Knee Joint with Synthetic Substitute, Cemented, Open Approach (ICD-10-PCS; CPT 20985; 2018-08-14 07:30)
DX: M17.11 Unilateral primary osteoarthritis, right knee (principal); Z96.651 Presence of right artificial knee joint; M21.161 Varus deformity, not elsewhere classified, right knee; I10 Essential (primary) hypertension; M85.80 Other specified disorders of bone density and structure, unspecified site
CPT/HCPCS: 20985; 27447; 64447; 76942; 97110; 97161; 97530; NC; J0690; J1040; J1885; J2250; J2405; J3010

== ENCOUNTER 2018-08-29 14:41 | Outpatient (CLI) | payer MEDICARE, BC, SELFPAY ==
--- NOTE | 2018-08-29 14:25 | DI.RAD_ITS ---
SYMPTOMS/DIAGNOSIS: S/P RIGHT TOTAL KNEE ARTHROPLASTY RIGHT KNEE: The patient is status post right TKA, the prosthesis in good position, surrounding bone intact with no interval change when compared with prior images. LEG LENGTH: The left leg measures 79 cm, the right leg 80 cm. 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
== END 2018-08-29 15:01 ==
PROVIDERS: PCP Internal Medicine; Visit Provider Student in an Organized Health Care Education/Training Program
DX: M17.11 Unilateral primary osteoarthritis, right knee (principal); Z96.651 Presence of right artificial knee joint; Z47.1 Aftercare following joint replacement surgery; M17.12 Unilateral primary osteoarthritis, left knee
CPT/HCPCS: 73560; 77073

== ENCOUNTER → 2018-09-26 10:10 | Outpatient (BNVA) | payer MEDICARE, BC, SELFPAY | PROVIDERS: PCP Internal Medicine; Referring Provider Internal Medicine; Visit Provider Student in an Organized Health Care Education/Training Program | DX: M17.12 Unilateral primary osteoarthritis, left knee (principal); Z47.1 Aftercare following joint replacement surgery; Z96.651 Presence of right artificial knee joint; Z98.890 Other specified postprocedural states ==

== ENCOUNTER → 2018-10-22 13:23 | Outpatient (BNVA) | payer MEDICARE, BC, SELFPAY | PROVIDERS: PCP Internal Medicine; Referring Provider Internal Medicine; Visit Provider Student in an Organized Health Care Education/Training Program | DX: Z47.1 Aftercare following joint replacement surgery (principal); Z96.651 Presence of right artificial knee joint ==

== ENCOUNTER → 2018-11-19 08:18 | Outpatient (BNVA) | payer MEDICARE, BC, SELFPAY | PROVIDERS: PCP Internal Medicine; Referring Provider Internal Medicine; Visit Provider Student in an Organized Health Care Education/Training Program | DX: M17.11 Unilateral primary osteoarthritis, right knee (principal); Z96.651 Presence of right artificial knee joint; Z47.1 Aftercare following joint replacement surgery; I10 Essential (primary) hypertension | CPT/HCPCS: 99213 ==

== ENCOUNTER 2019-08-12 08:51 | Outpatient (CLI) | payer MEDICARE, BC, SELFPAY ==
--- NOTE | 2019-08-12 08:30 | DI.RAD_ITS ---
EXAM: XR KNEE RT 2V AP,LAT CLINICAL HISTORY: ANNUAL F/U TECHNIQUE: COMPARISON: XR knee RT 1V from 08/29/2018 FINDINGS: Two views were obtained and show total knee joint replacement in position. Components appear well se ated. No other significant bony abnormality seen. IMPRESSION:
== END 2019-08-12 09:11 ==
PROVIDERS: PCP Internal Medicine; Referring Provider Internal Medicine; Visit Provider Student in an Organized Health Care Education/Training Program
DX: M17.11 Unilateral primary osteoarthritis, right knee (principal); Z96.651 Presence of right artificial knee joint; M17.12 Unilateral primary osteoarthritis, left knee; M20.42 Other hammer toe(s) (acquired), left foot; I10 Essential (primary) hypertension
CPT/HCPCS: 99213; 73560

== ENCOUNTER → 2019-10-11 08:42 | Outpatient (BNVA) | payer MEDICARE, BC, SELFPAY | PROVIDERS: PCP Internal Medicine; Referring Provider Internal Medicine; Visit Provider Student in an Organized Health Care Education/Training Program | DX: M25.561 Pain in right knee (principal); Z47.1 Aftercare following joint replacement surgery; Z96.651 Presence of right artificial knee joint | CPT/HCPCS: 99212; 99442 ==

== ENCOUNTER 2019-11-29 11:56 | Outpatient (CLI) | payer MEDICARE, BC, SELFPAY ==
--- NOTE | 2019-11-29 11:15 | DI.RAD_ITS ---
EXAM: XR KNEE RT 2V AP,LAT CLINICAL HISTORY: NEW INJURY. TECHNIQUE: 2D digital imaging was performed. COMPARISON: CR XR KNEE RT 2V AP,LAT from 08/12/2019 FINDINGS: There are stable postsurgical changes of a right total knee replacement. There is no evidence of skylar dware failure. The bones are intact. The soft tissues are unremarkable. IMPRESSION: Stable right TKR. DATA REPOSITORY: RADIATION DOSE DELIVERED:
== END 2019-11-29 12:16 ==
PROVIDERS: PCP Internal Medicine; Referring Provider Internal Medicine; Visit Provider Student in an Organized Health Care Education/Training Program
DX: M25.561 Pain in right knee (principal); Z96.651 Presence of right artificial knee joint; W19.XXXA Unspecified fall, initial encounter
CPT/HCPCS: 99214; 73560

== ENCOUNTER → 2020-01-20 09:33 | Outpatient (BNVA) | payer MEDICARE, BC, SELFPAY | PROVIDERS: PCP Internal Medicine; Referring Provider Internal Medicine; Visit Provider Student in an Organized Health Care Education/Training Program | DX: M62.81 Muscle weakness (generalized) (principal); Z96.651 Presence of right artificial knee joint | CPT/HCPCS: 99213 ==

== ENCOUNTER 2020-03-06 23:35 | Outpatient (REF) | payer MEDICARE, BC, SELFPAY ==
[2020-03-06 22:31] LABS: Anion Gap 7.7 mmol/L (3-11); BUN 14 mg/dL (7-18); CO2 28.3 mmol/L (21.0-32.0); CREATININE 0.67 mg/dL (0.55-1.02); Calculated LDL 142 mg/dL (<100); Chloride 105 mmol/L (98-107); Cholesterol 247 mg/dL (<200); Glucose 87 mg/dL (74-106); HDL Cholesterol 84 mg/dL (40-60); Sodium 141 mmol/L (136-145); Triglyceride 107 mg/dL (<150)
== END 2020-03-06 23:55 ==
LOC: NCHCN 23:35
PROVIDERS: PCP Internal Medicine; Visit Provider Internal Medicine
DX: I10 Essential (primary) hypertension (principal)
CPT/HCPCS: 80048; 80061

== ENCOUNTER 2020-08-13 10:33 | Outpatient (CLI) | payer MEDICARE, BC, SELFPAY ==
--- NOTE | 2020-08-13 09:00 | DI.RAD_ITS ---
EXAM: XR KNEE RT 3V AP,LAT,ELVIN CLINICAL HISTORY: follow up. TECHNIQUE: 2D digital imaging was performed. COMPARISON: 11/29/2019 x-rays FINDINGS: There is stable position alignment of the components of the right knee prosthesis. No fracture or lo osening evident. No radiographic evidence of osteomyelitis. IMPRESSION: DATA REPOSITORY: RADIATION DOSE DELIVERED:
== END 2020-08-13 10:34 | disposition home or self-care (01) ==
LOC: DIORS 10:33
PROVIDERS: PCP Internal Medicine; Referring Provider Internal Medicine; Visit Provider Student in an Organized Health Care Education/Training Program
DX: Z96.651 Presence of right artificial knee joint (principal); Z47.1 Aftercare following joint replacement surgery
CPT/HCPCS: 73562; 99213

== ENCOUNTER 2021-03-08 14:56 | Outpatient (REF) | payer MEDICARE, BC, SELFPAY ==
[2021-03-08 14:15] LABS: HGB 14.5 g/dL (11.2-15.7); MCH 31.5 pg (27.0-33.0); MCV 95.4 fL (80-95); MPV 12.2 fL (8.0-11.0); Platelet Count 156 10^3/uL (130-400); RBC 4.61 10^6/uL (3.93-5.22); RDW 13.1 % (11.7-14.6); RDW-SD 46.3 fL; WBC 5.89 10^3/uL (4.4-10.8)
[2021-03-08 14:23] LABS: Bilirubin Negative (Negative); Blood Trace-intact (Negative); Clarity Cloudy (Clear); Glucose Negative (Negative); Ketones Negative (Negative); Leukocyte Esterase Moderate (Negative); Nitrite Negative (Negative); Specific Gravity 1.015 (1.005-1.025); Urobilinogen 0.2 EU/dL (Up TO 0.2)
[2021-03-08 14:33] LABS: WBC >50 HPF (0-5)
[2021-03-08 14:34] LABS: Bacteria Many HPF (Negative); C & S Indicated? Yes; Casts Negative LPF (Negative); Crystals Negative HPF (Negative); Epithelial Cells Few HPF (Negative); Mucus Negative (Negative); Other Cells Negative (Negative)
[2021-03-08 14:45] LABS: ALT 25 U/L (14-59); AST 21 U/L (15-37); Albumin 3.8 g/dL (3.4-5.0); Alkaline Phosphatase 112 U/L (46-116); Anion Gap 9.4 mmol/L (3-11); BUN 12 mg/dL (7-18); Bilirubin, Total 0.5 mg/dL (0.2-1.0); CO2 28.6 mmol/L (21.0-32.0); CREATININE 0.8 mg/dL (0.55-1.02); Calcium 9.2 mg/dL (8.5-10.1); Calculated LDL 121 mg/dL (<100); Chloride 106 mmol/L (98-107); Cholesterol 217 mg/dL (<200); Glucose 85 mg/dL (74-106); HDL Cholesterol 80 mg/dL (40-60); Potassium 4.2 mmol/L (3.5-5.1); Sodium 144 mmol/L (136-145); Triglyceride 80 mg/dL (<150)
== END 2021-03-08 14:57 | disposition home or self-care (01) ==
LOC: NCHCN 14:56
PROVIDERS: PCP Internal Medicine; Visit Provider Internal Medicine
DX: I10 Essential (primary) hypertension (principal); N93.9 Abnormal uterine and vaginal bleeding, unspecified; K62.5 Hemorrhage of anus and rectum; R82.998 Other abnormal findings in urine
CPT/HCPCS: 80053; 80061; 85027; 87077; 81003; 81015; 87086; 87186

== ENCOUNTER 2021-03-29 17:19 | Outpatient (REF) | payer MEDICARE, BC, SELFPAY ==
[2021-03-29 21:14] LABS: Bilirubin Negative (Negative); Blood Negative (Negative); Clarity Clear (Clear); Glucose Negative (Negative); Ketones Negative (Negative); Leukocyte Esterase Negative (Negative); Nitrite Negative (Negative); Urobilinogen 0.2 EU/dL (Up TO 0.2)
== END 2021-03-29 17:20 | disposition home or self-care (01) ==
LOC: NCHCN 17:19
PROVIDERS: PCP Internal Medicine; Visit Provider Internal Medicine
DX: N39.0 Urinary tract infection, site not specified (principal)
CPT/HCPCS: 81003

== ENCOUNTER → 2021-04-05 12:45 | Outpatient (BNVA) | payer MEDICARE, BC, SELFPAY | PROVIDERS: PCP Family Medicine; Referring Provider Obstetrics & Gynecology; Visit Provider Nurse Practitioner Gerontology | DX: R33.8 Other retention of urine (principal); R32 Unspecified urinary incontinence; Z80.52 Family history of malignant neoplasm of bladder; N81.10 Cystocele, unspecified | CPT/HCPCS: 99214 ==

== ENCOUNTER 2021-04-07 01:01 | Outpatient (CLI) | payer MEDICARE, BC, SELFPAY ==
--- NOTE | 2021-04-07 06:15 | DI.US_ITS ---
Exam(s) US RENAL EXAM: US RENAL CLINICAL HISTORY: elevated PVR on Bladder scan - ? hydro,URINARY RETENTION,R33.9. TECHNIQUE: Hernández scale, color and spectral Doppler were used. COMPARISON: No exams were available for comparison FINDINGS: Renal size in cm: Right: 9.1. Left: 10.2. Echogenicity: Normal. Hydronephrosis: No. Cyst or mass: No. Nephrolithiasis: No. Other findings: None. Bladder:Normal. Ureteral jets: Right: Visualized and unremarkable. Left: Visualized and unremarkable. Prevoid vol:167 cc Postvoid vol:104 cc Renal color flow: Symmetric and within normal limits. IMPRESSION: 1. Moderate postvoid residual. 2. No hydronephrosis. DATA REPOSITORY:
== END 2021-04-07 01:21 ==
PROVIDERS: PCP Family Medicine; Visit Provider Nurse Practitioner Gerontology
DX: R33.9 Retention of urine, unspecified (principal)
CPT/HCPCS: 76770

== ENCOUNTER 2021-04-07 01:12 | Outpatient (CLI) | payer MEDICARE, BC, SELFPAY ==
--- NOTE | 2021-04-07 | DI.US_ITS ---
Exam(s) US PELVIS TRANSVAGINAL EXAM: US PELVIS TRANSVAGINAL CLINICAL HISTORY: CYSTOCELE,N81.0, VAGINAL BLEEDING,N93.9. TECHNIQUE: Transabdominal and transvaginal pelvic ultrasound was performed using standard protocol. COMPARISON: No priors for comparison. FINDINGS: UTERUS: Position: Anteverted. Size: 6.4 long by 2.7 AP by 3.5 transverse cm Endometrium: 0.6 cm. The fundal endometrium is heterogeneous and avascular. Myometrium: Unremarkable. Cervix: Unremarkable. OVARIES: Right: 2.1 x 2.4 x 1.2 cm Cyst or mass: None. Left: 2.1 x 1 x 1.6 cm Cyst or mass: None. DOPPLER: Color: Symmetric and uniform flow to both ovaries. No hyperemia. Duplex: Normal ovarian arterial waveforms visualized. CUL-DE-SAC: Free fluid: None. Other: None. IMPRESSION: 1. Heterogeneous avascular endometrial stripe. Differential considerations include endometrial mass such as a polyp, neoplasm or hyperplasia. Gynecologic follow-up is recommended. 2. Unremarkable bilateral ovaries. DATA REPOSITORY:
== END 2021-04-07 01:32 ==
PROVIDERS: PCP Family Medicine; Visit Provider Internal Medicine
DX: N81.10 Cystocele, unspecified (principal); N39.9 Disorder of urinary system, unspecified; R93.89 Abnormal findings on diagnostic imaging of other specified body structures
CPT/HCPCS: 76770; 76830; 76856

== ENCOUNTER 2021-04-19 12:13 | Outpatient (REF) | payer MEDICARE, BC, SELFPAY ==
--- NOTE | 2021-04-19 09:40 | ENDOMET_PTH ---
PATIENT: Josefa Hidalgo LOC: [facility] U#:[id number] AGE/SX: 70/F ROOM: RE04/19/[address]: Elizabeth Najera DO : 1950 BED: DIS: 04/19/2021 SPEC #: [id number] RECD: 04/19/21 12:41 STATUS: SOUBrandon REQ #: [id number] MATTHEW: 04/19/21 09:[address]: Elizabeth Najera DEPT: Surgical Specimen RECD BY: Shelly Hoang ENTERED: 04/19/21 12:41 SP TYPE: Endomet OTHR DR: Nic Diaz Tissues: 1 - ENDOMETRIUM BX/XIOMARA Procedures: GROSS AND MICRO LEVEL 4 Comments: [id number]
== END 2021-04-19 12:14 | disposition home or self-care (01) ==
LOC: LBN 12:13
PROVIDERS: PCP Family Medicine; Visit Provider Obstetrics & Gynecology
DX: N72 Inflammatory disease of cervix uteri (principal)
CPT/HCPCS: 88305

== ENCOUNTER → 2021-04-20 08:16 | Outpatient (BNVA) | payer MEDICARE, BC, SELFPAY | PROVIDERS: PCP Family Medicine; Referring Provider Family Medicine; Visit Provider Nurse Practitioner Gerontology | DX: N39.46 Mixed incontinence (principal); R33.9 Retention of urine, unspecified | CPT/HCPCS: 99213 ==

== ENCOUNTER 2021-05-25 02:40 | Outpatient (CLI) | payer MEDICARE, BC, SELFPAY ==
[2021-05-25 08:55] LABS: Abs Immature Grans 0.01 10^3/uL (0.0-0.06); Absolute Basophil Count 0.02 10^3/uL (0.0-0.2); Absolute Lymphocyte Count 1.72 10^3/uL (1.2-3.4); Absolute Monocyte Count 0.64 10^3/uL (0.1-0.8); Absolute Neutrophil Count 2.84 10^3/uL (1.2-6.7); Basophils % 0.4; Eosinophils % 1.9; HCT 42.8 % (36.0-46.0); HGB 14.3 g/dL (11.2-15.7); Immature Grans % 0.2; Lymphocytes % 32.3; MCH 31.4 pg (27.0-33.0); MCHC 33.4 % (32.0-36.0); MCV 94.1 fL (80-95); MPV 10.7 fL (8.0-11.0); Neutrophils % 53.2; Nucleated RBC 0 %; Platelet Count 181 10^3/uL (130-400); RBC 4.55 10^6/uL (3.93-5.22); RDW 13.3 % (11.7-14.6); RDW-SD 46.5 fL; WBC 5.33 10^3/uL (4.4-10.8)
== END 2021-05-25 02:41 | disposition home or self-care (01) ==
LOC: LBO 02:40
PROVIDERS: PCP Family Medicine; Visit Provider Obstetrics & Gynecology
DX: Z01.818 Encounter for other preprocedural examination (principal)
CPT/HCPCS: 36415; 86850; 86900; 86901; 85025

== ENCOUNTER 2021-05-27 12:20 | Day surgery (SDC) | payer MEDICARE, BC, SELFPAY ==
[2021-05-27 12:41] VITALS: BP 130/81; PULSE 78; RESP 16; TEMP 36.3; O2SAT 95
[2021-05-27] MEDS: Lactated Ringers 1,000 ML 125 ML IV (13:11)
--- NOTE | 2021-05-27 13:43 | W.ANESPRE ---
General Info Date of Service Date Performed: 05/27/21 Height: 5 ft Weight: 64.9 kg Body Mass Index (BMI): 27.9 Surgical Procedure: Operation Date: 05/27/21 14:10 Proposed Procedures Side Surgeon p Dilation & Curettage with Hysteroscopy Elizabeth Najera DO Meds Allergies and Home Medications Allergies Allergy/AdvReac Type Severity Reaction Status Date / Time lisinopril AdvReac Mild cough Verified 05/27/21 12:38 Home Medication Medication Instructions Recorded amlodipine 5 mg tablet 5 mg PO DAILY 07/16/18 herbal complex no.174 [Echinacea 1 drp PO DAILY 08/08/18 and Goldenseal] multivitamin 1 tab PO DAILY 08/08/18 acetaminophen 1,000 mg PO Q8H PRN #90 tab 08/15/18 ibuprofen 600 mg PO TID PRN #90 tab 08/15/18 Current Visit Medications: Current Medications Generic Name Dose Route Start Last Admin Trade Name Freq PRN Reason Stop Dose Admin Ringer's Solution 1,000 mls @ 125 mls/hr 05/27/21 06:00 05/27/21 13:11 IV 06/25/21 23:59 125 mls/hr INFUSION YAMILKA Administration IV Miscellaneous Supplies 1 each 05/27/21 06:00 Iv Access IV 06/25/21 23:59 DIRECTED YAMILKA Sodium Chloride 0 ml 05/27/21 06:00 Normal Saline Flush 10 Ml Syr IV 06/25/21 23:59 PRN PRN Sodium Chloride 0 ml 05/27/21 06:00 Normal Saline 10 Ml Vial IJ 06/25/21 23:59 DIRECTED PRN Sterile Water 0 ml 05/27/21 06:00 Water,Injection,Sterile 10 Ml Vial IJ 06/25/21 23:59 DIRECTED PRN PFSH Active Problems Active Problems: Problem Status Onset Code Postmenopausal bleeding N95.0 Thickened endometrium R93.89 Family history of bladder cancer Z80.52 Hammertoe of left foot M20.42 Left knee DJD M17.12 Status post total right knee replacement 08/14/18 Z96.651 S/P right knee arthroscopy Z98.890 Osteopenia M85.80 Essential hypertension I10 Cystocele Urine incontinence R32 Medical History Medical History Arthritis of right knee s/p TKA on 08/14/18 Tobacco Smoking/Tobacco Use Status: Never Alcohol Alcohol Intake: current Alcohol intake frequency: holidays/special occasions only Alcohol type: beer and wine Substance Use Substance use: Never Substance use type: does not use Prental History History 2 Para Hx # Term Pregnancies 2 Multiple births Hx # Pregnancies Ectopic pregnancies AB induced Hx Number of Living Children AB spontaneous Vital Signs and Lab Results Vital Signs Most Recent Vital Signs in EMR: Most Recent Vital Signs Temp Pulse Resp BP Pulse Ox 36.3 C L 78 16 130/81 95 05/27/21 12:41 05/27/21 12:41 05/27/21 12:41 05/27/21 12:41 05/27/21 12:41 Lab Results Blood Type / Crossmatch: Patient ABO/Rh O Positive 05/25/21 08:30 05/25/21 Antibody Screen NEGATIVE 05/25/21 08:30 05/25/21 Complete Blood Count: White Blood Count 5.33 10^3/uL (4.4-10.8) 05/25/21 08:30 05/25/21 Red Blood Count 4.55 10^6/uL (3.93-5.22) 05/25/21 08:30 05/25/21 Hemoglobin 14.3 g/dL (11.2-15.7) 05/25/21 08:30 05/25/21 Hematocrit 42.8 % (36.0-46.0) 05/25/21 08:30 05/25/21 Platelet Count 181 10^3/uL (130-400) 05/25/21 08:30 05/25/21 Complete Metabolic Panel: No Data to Display Liver Function Panel: No Data to Display Coagulation Panel: No Data to Display Cardiac Panel: No Data to Display Arterial Blood Gas: No Data to Display Venous Blood Gas: No Data to Display Pancreas Panel: No Data to Display Thyroid Panel: No Data to Display Infectious Disease: No Data to Display Blood Cultures: No Data to Display Toxicology Panel: No Data to Display Anesthesia Assessment and Plan Anesthesia History Personal History: No History of Anesthesia Complications Family History: No Family History of Anesthesia Complications Exercise Tolerance Exercise Tolerance: Metabolic Equivalents>4 Pertinent Negatives Pertinent Negatives: No Symptoms of GERD, No Major Cardiovascular Symptoms or Complaints and No Major Pulmonary Symptoms or Complaints Cardiac & Pulmonary Exam Cardiac Exam: Normal S1/S2 Heart Sounds Pulmonary Exam: Clear Bilateral Breath Sounds Implantable Cardiac Device Does patient have a Pacemaker or an ICD?: No Airway Exam Known Difficult Airway: No Mallampati Class: 1 Mouth Opening: Normal (> 3cm) Thyromental Distance: Greater than 3 cm Neck Range of Motion: Full ROM Neck Circumference: Normal Teeth Condition: Normal Dentition ASA Classification ASA Score: ASA 2 Emergency Case?: No NPO Status NPO Status: NPO Clears >2 hours, Solids >8 hours Anesthesia Plan Resuscitation Status: Full Code Anesthesia Technique: General Anesthesia Airway Planned: Natural Airway Monitors Used: Standard Monitors
[2021-05-27 13:45] VITALS: BMI 27.9
--- NOTE | 2021-05-27 14:35 | ENDOMET_PTH ---
PATIENT: Josefa Hidalgo LOC: [facility] U#:[id number] AGE/SX: 70/F ROOM: RE05/27/[address]: Elizabeth Najera DO : 1950 BED: DIS: 05/27/2021 SPEC #: [id number] RECD: 05/27/21 17:22 STATUS: TYESHA RECurt #: [id number] MATTHEW: 05/27/21 14:[address]: Elizabeth Najera DEPT: Surgical Specimen RECD BY: Shelly Hoang ENTERED: 05/27/21 17:23 SP TYPE: Endomet OTHR DR: Nic Diaz Tissues: 1 - ENDOMETRIUM BX/CURRETTE 2 - ENDOCERVICAL BX/CURRETTE 3 - ENDOMETRIUM BX/CURRETTE Procedures: GROSS AND MICRO LEVEL 4 IMMUNOPEROXIDASE STAIN P16 IPEX Comments: [id number]
[2021-05-27 14:57] VITALS: BP 127/78; PULSE 67; RESP 16; TEMP 36.1; O2SAT 96
--- NOTE | 2021-05-27 15:01 | W.PM.OP ---
Date of service: 05/27/21 Time of Service: 15:01 Operative Note Operative Note DATE OF PROCEDURE: 05/27/21 PRE-OP DIAGNOSIS: Thickened endometrium, postmenopausal bleeding POST-OP DIAGNOSIS: same PROCEDURE: Hysteroscopy, dilation and curettage, MyoSure removal of polyp SURGEON: Elizabeth Najera ANESTHESIA TYPE: MAC Refer to Anesthesia Record ESTIMATED BLOOD LOSS: 5 PATHOLOGY: other (1. Endometrial polyp 2. Endocervical curettage 3. Endometrial curettage) COMPLICATIONS: None Patient was transported to: same day Patient's condition: stable Findings: Small, posterior uterine wall polyp. Visualization of both tubal ostia. Smooth regular endometrium Procedure Description: Patient was taken the operating suite with an IV running where she is placed in supine position. Anesthesia administered via monitored anesthesia care. She was then placed in the modified dorsolithotomy position in yellowfin stirrups and prepped and draped in the usual sterile fashion. Exam under anesthesia revealed a uterus that was mobile and midline and the grade 2 uterine polyp prolapse with grade 2 cystocele. Cervix was visualized after speculum inserted. Single-tooth tenaculum used to grasp the anterior lip of the cervix. Cervical os dilated the point that a MyoSure hysteroscope could be passed with ease. With instillation of normal saline and a total deficit of 185 mL the entire endometrial cavity was visualized. The majority of the cavity was smooth and regular with normal-appearing tubal ostia. There was a pedunculated, thin wispy uterine polyp that measured approximately 3 mm on the posterior wall. MyoSure reach device utilized to remove the polyp. Base was hemostatic. At this point, the hysteroscope was removed. A gentle sharp endocervical followed by sharp endometrial curettage was performed with ease. Tenaculum was removed, puncture sites were hemostatic. Speculum was removed. Patient was returned to the dorsal supine position and awoke from anesthesia with ease. Findings were discussed with the patient prior to her departure from the operating room. EBL: 5 mL Complications: None apparent pathology: 1. Endometrial polyp 2. Endocervical curettage 3. Endometrial curettage Fluids: Crystalloid per anesthesia
--- NOTE | 2021-05-27 15:19 | W.ANESPOSTOP ---
Postoperative Evaluation Date, Time and Location Date Performed: 05/27/21 Time Performed: 15:19 Patient Location: Day Surgery Unit Vital Signs Most Recent Imported Vital Signs: Most Recent Vital Signs Temp Pulse Resp BP Pulse Ox 36.1 C L 67 16 127/78 96 05/27/21 14:57 05/27/21 14:57 05/27/21 14:57 05/27/21 14:57 05/27/21 14:57 Pain Score Most Recent Pain Score: Most Recent Pain Score Pain Level 0 05/27/21 14:57 Assessment Mental Status: Awake (Alert & Oriented to Patient Baseline) Airway and Respiratory Function: Patent airway with normal (patient baseline) respiratory exam Cardiovascular Function: Hemodynamically Stable Hydration Status: Adequately Hydrated Nausea & Vomiting: No Nausea or Vomiting Pain: Pt. Denies Any Pain Peripheral Nerve Block: Patient did not receive a nerve block
[2021-05-27 15:27] VITALS: BP 139/77; PULSE 62; RESP 16; TEMP 36; O2SAT 96
== END 2021-05-27 15:51 | disposition home or self-care (01) ==
PROVIDERS: PCP Family Medicine; Visit Provider Obstetrics & Gynecology
PROC: 0UDB8ZZ Extraction of Endometrium, Via Natural or Artificial Opening Endoscopic (ICD-10-PCS; CPT 58558; principal; 2021-05-27 14:00)
DX: N84.0 Polyp of corpus uteri (principal); N95.0 Postmenopausal bleeding; R93.89 Abnormal findings on diagnostic imaging of other specified body structures; I10 Essential (primary) hypertension
CPT/HCPCS: 58558; 88305; 88342; 88361; J2001; J3010

== ENCOUNTER → 2021-08-24 08:14 | Outpatient (BNVA) | payer MEDICARE, BC, SELFPAY | PROVIDERS: PCP Family Medicine; Visit Provider Nurse Practitioner Gerontology | DX: R32 Unspecified urinary incontinence (principal); R33.8 Other retention of urine | CPT/HCPCS: 99214 ==

== ENCOUNTER 2021-10-08 15:53 | Outpatient (REF) | payer MEDICARE, BC, SELFPAY | END 2021-10-08 15:54 | disposition home or self-care (01) | LOC: LBN 15:53 | PROVIDERS: PCP Family Medicine; Visit Provider Obstetrics & Gynecology | DX: N89.8 Other specified noninflammatory disorders of vagina (principal) | CPT/HCPCS: 87480; 87510; 87660 ==

== ENCOUNTER → 2021-11-11 10:11 | Outpatient (BNVA) | payer MEDICARE, BC, SELFPAY | PROVIDERS: PCP Family Medicine; Referring Provider Family Medicine; Visit Provider Student in an Organized Health Care Education/Training Program | DX: M17.12 Unilateral primary osteoarthritis, left knee (principal) | CPT/HCPCS: 99212 ==

== ENCOUNTER 2021-11-23 21:47 | Outpatient (REF) | payer MEDICARE, BC, SELFPAY | END 2021-11-23 21:48 | disposition home or self-care (01) | LOC: LBN 21:47 | PROVIDERS: PCP Family Medicine; Visit Provider Obstetrics & Gynecology | DX: N76.0 Acute vaginitis (principal); B96.89 Other specified bacterial agents as the cause of diseases classified elsewhere | CPT/HCPCS: 87480; 87510; 87660 ==

== ENCOUNTER → 2022-01-14 08:27 | Outpatient (BNVA) | payer MEDICARE, BC, SELFPAY | PROVIDERS: PCP Family Medicine; Referring Provider Family Medicine; Visit Provider Student in an Organized Health Care Education/Training Program | DX: M17.12 Unilateral primary osteoarthritis, left knee (principal) | CPT/HCPCS: 99213 ==

== ENCOUNTER 2022-02-16 09:57 | Outpatient (CLI) | payer MEDICARE, BC, SELFPAY ==
--- NOTE | 2022-02-16 09:30 | DI.RAD_ITS ---
Exam(s) XR STANDING ALIGNMENT EXAM: XR STANDING ALIGNMENT CLINICAL HISTORY: left knee pain. TECHNIQUE: 2D digital imaging was performed. COMPARISON: Compared to similar study August 2018 FINDINGS: Standing 3 views: Again noted is a right knee prosthesis which appears stable with respect to position alignment. Adva nced narrowing of the medial compartment of the opposite-left knee is again noted. Similar to previo us. Hips appear unremarkable. Ankles appear unremarkable. IMPRESSION: Significant narrowing of the medial compartment of the left knee. DATA REPOSITORY: RADIATION DOSE DELIVERED:
--- NOTE | 2022-02-16 09:30 | DI.RAD_ITS ---
Exam(s) XR KNEE LT 1V EXAM: XR KNEE LT 1V CLINICAL HISTORY: left knee pain. TECHNIQUE: 2D digital imaging was performed. COMPARISON: CR XR KNEE RT 3V AP,LAT,ELVIN from 08/13/2020 FINDINGS: Single lateral view: There is advanced narrowing of the medial compartment. Also moderate degenerative change in the hsieh llofemoral compartment. Bone density normal. No osseous lesions evident on this lateral view. IMPRESSION: DATA REPOSITORY: RADIATION DOSE DELIVERED:
== END 2022-02-16 09:58 | disposition home or self-care (01) ==
LOC: DIORS 09:59
PROVIDERS: PCP Internal Medicine; Referring Provider Internal Medicine; Visit Provider Physician Assistant
DX: M17.12 Unilateral primary osteoarthritis, left knee (principal); Z01.818 Encounter for other preprocedural examination; Z96.651 Presence of right artificial knee joint
CPT/HCPCS: 73560; 77073

== ENCOUNTER 2022-03-07 03:20 | Outpatient (CLI) | payer MEDICARE, BC, SELFPAY ==
[2022-03-07 09:14] LABS: HCT 42.4 % (36.0-46.0); MCH 31.6 pg (27.0-33.0); MCV 96 fL (80-95); MPV 10.7 fL (8.0-11.0); Platelet Count 180 10^3/uL (130-400); RBC 4.43 10^6/uL (3.93-5.22); WBC 5.01 10^3/uL (4.4-10.8)
[2022-03-07 09:36] LABS: Anion Gap 8.3 mmol/L (3-11); BUN 15 mg/dL (7-18); CO2 28.7 mmol/L (21.0-32.0); CREATININE 0.8 mg/dL (0.55-1.02); Calcium 8.9 mg/dL (8.5-10.1); Chloride 104 mmol/L (98-107); Estimated GFR 77.75 (mL/min/1.73m2); Glucose 91 mg/dL (74-106); Potassium 3.8 mmol/L (3.5-5.1); Sodium 141 mmol/L (136-145)
== END 2022-03-07 03:21 | disposition home or self-care (01) ==
LOC: LBO 03:20
PROVIDERS: PCP Internal Medicine; Visit Provider Student in an Organized Health Care Education/Training Program
DX: M17.12 Unilateral primary osteoarthritis, left knee (principal); Z01.818 Encounter for other preprocedural examination
CPT/HCPCS: 36415; 80048; 85027

== ENCOUNTER 2022-03-09 05:58 | Day surgery (SDC) | payer MEDICARE, BC, SELFPAY ==
[2022-03-09] VITALS (13 sets, daily range): BP systolic 81–173; BP diastolic 31–100; PULSE 56–99; RESP 15–18; TEMP 35.9–36.5; O2SAT 94–98; BMI 28.0
[2022-03-09] MEDS: Celecoxib 200 MG CAP 400 MG PO (06:30)
[2022-03-09] MEDS: Acetaminophen 500 MG TAB 1000 MG PO ×2 (06:31→14:17)
[2022-03-09] MEDS: Gabapentin 300 MG CAP PO (06:31)
[2022-03-09] MEDS: Lactated Ringers 1,000 ML 80 ML IV (06:45)
--- NOTE | 2022-03-09 06:46 | W.PM.DSUDISC ---
Discharge Plan Disposition Patient Disposition: HOME Condition: Good Discharge Details Reason For Visit: Left TKA Attending Provider: Maximiliano Ames Primary Care Provider: Jevon Restrepo Home Meds and New Rx's Prescriptions: New acetaminophen 500 mg capsule 1,000 mg PO Q8H PRN PRNQty: 90 0RF aspirin 81 mg tablet,delayed release (DR/EC) 81 mg PO BID Qty: 60 0RF pantoprazole [Protonix] 40 mg tablet,delayed release (DR/EC) 40 mg PO DAILY Qty: 30 0RF gabapentin 300 mg capsule 300 mg PO QHS Qty: 14 0RF ibuprofen 600 mg tablet 600 mg PO TID Qty: 90 0RF hydromorphone 2 mg tablet 2 mg PO Q4H PRNQty: 10 0RF Continued amlodipine 5 mg tablet 5 mg PO DAILY multivitamin Tablet 1 tab PO DAILY Echinacea and Goldenseal 450 mg Capsule 1 drp PO DAILY ibuprofen 600 mg tablet 600 mg PO TID PRNQty: 90 3RF ferrous sulfate [iron] 325 mg (65 mg iron) Tablet 325 mg PO DAILY Discharge Instructions Additional Instructions: Total Knee Discharge Instructions Activity: The most important activity is to walk. You should try to take short walks a few times a day. It is important that when resting you work on keeping the knee straight. Avoid putting a pillow behind the knee as this will encourage flexion. Work on range of motion exercises as provided by Physical Therapy. - Start outpatient physical therapy within 2 weeks. - You should wear the EVELINE hose on both legs for 2 weeks. You may remove these at night. You may also use any compression sock in place of the EVELINE hose. - Utilize [employer] to review exercises, see videos on exercises and obtain basic information pertaining to your surgery and your recovery. Dressing: Remove the Lacho wrap by 2 days after your surgery and put on the EVELINE stocking given to you from the hospital. Keep the surgical dressing (underneath the LACHO wrap) in place for at least one week. After the first week it may be removed and replaced with light gauze and tape or nothing. The wound and dressing may get wet after 3 days but avoid soaking the dressing or otherwise it will need to be changed. Many people prefer covering the dressing with cling wrap (saran wrap) to minimize it from getting soaked. If it gets wet, just pat dry. If it starts to peel off then it will need to be changed. Medications: - You should take Tylenol and anti-inflammatory Ibuprofen as your primary pain control medications. - You have been prescribed a stronger pain medication Hydromorphone for breakthrough pain, take as needed as prescribed. - You have also been prescribed a stomach acid reduction agent Pantoprozole to help reduce stomach acid and reflux. - You have been prescribed Gabapentin to take at night for restlessness and nerve pain. - You will be taking Aspirin 81mg twice a day for DVT prevention unless instructed otherwise. - If you have constipation you should take Colace or Miralax (both [id number]). It takes most people 3-4 days to have a bowel movement. Follow-up: 2 weeks If you have any acute concerns or questions, please do not hesitate to contact the office at [phone]. You may contact Dr. Ames with any questions after hours through the hospital at [phone] or on his cell phone at [phone]. Stand Alone Forms: Anesthesia Discharge Inst., Yaron.Nerve Block Instructions, [place] ([facility]) Referrals: Maximiliano Ames MD [ [facility] STAFF PHYSICIAN] - Equipment/Supplies: Walker Activity:: Activity as Tolerated Remove Dressings/Wound Care:: Do Not Remove Shower/Bathe:: 72 hours Diet:: As Tolerated Discharge Orders Discharge Orders: Discharge Order (Routine); Ordered 03/09/22 Ordered By: Leydi Hand DS: Diagnosis Discharge Diagnosis (1) Left knee DJD: Status: Chronic
--- NOTE | 2022-03-09 06:51 | W.ANESPRE ---
General Info Date of Service Date Performed: 03/09/22 Height: 5 ft Weight: 65 kg Body Mass Index (BMI): 28.0 Surgical Procedure: Operation Date: 03/09/22 07:55 Proposed Procedure Side Surgeon p Knee Total Arthroplasty Left Maximiliano Ames MD Meds Allergies and Home Medications Allergies Allergy/AdvReac Type Severity Reaction Status Date / Time lisinopril AdvReac Mild cough Verified 03/09/22 06:07 Home Medication Medication Instructions Recorded amlodipine 5 mg tablet 5 mg PO DAILY 07/16/18 herbal complex no.174 450 mg 1 drp PO DAILY 08/08/18 capsule (Echinacea and Goldenseal) multivitamin 1 tab PO DAILY 08/08/18 ibuprofen 600 mg tablet 600 mg PO TID PRN #90 tabs 08/15/18 ferrous sulfate 325 mg (65 mg 325 mg PO DAILY 03/08/22 iron) tablet (iron) acetaminophen 500 mg capsule 1,000 mg PO Q8H PRN PRN #90 caps 03/09/22 aspirin 81 mg tablet,delayed 81 mg PO BID #60 tabs 03/09/22 release gabapentin 300 mg capsule 300 mg PO QHS #14 caps 03/09/22 ibuprofen 600 mg tablet 600 mg PO TID #90 tabs 03/09/22 pantoprazole 40 mg tablet,delayed 40 mg PO DAILY #30 tabs 03/09/22 release (Protonix) Current Visit Medications: Current Medications Generic Name Dose Route Start Last Admin Trade Name Freq PRN Reason Stop Dose Admin Acetaminophen 1,000 mg 03/09/22 06:00 03/09/22 06:31 Acetaminophen 500 Mg Tab PO 1,000 mg PREOP YAMILKA Administration Acetaminophen 1,000 mg 03/09/22 08:30 Acetaminophen 500 Mg Tab PO TID YAMILKA Aspirin 81 mg 03/09/22 08:30 Aspirin E.C. 81 Mg Tabec PO BID YAMILKA Celecoxib 400 mg 03/09/22 06:00 03/09/22 06:30 Celecoxib 200 Mg Cap PO 400 mg PREOP YAMILKA Administration Celecoxib 200 mg 03/09/22 08:30 Celecoxib 200 Mg Cap PO BID YAMILKA Gabapentin 300 mg 03/09/22 06:00 03/09/22 06:31 Gabapentin 300 Mg Cap PO 300 mg PREOP YAMILKA Administration Hydromorphone HCl 0.5 mg 03/09/22 06:44 Hydromorphone 2 Mg/Ml Syr IVP Q2H PRN PRN Tranexamic Acid 1,000 mg/ 60 mls @ 360 mls/hr 03/09/22 06:00 Sodium Chloride IVPB 03/09/22 18:00 PREOP YAMILKA Ringer's Solution 1,000 mls @ 80 mls/hr 03/09/22 06:00 IV 03/09/22 23:59 INFUSION YAMILKA Cefazolin Sodium/Dextrose 2 gm in 50 mls @ 100 mls/hr 03/09/22 06:00 Ancef Duplex IVPB 03/09/22 23:59 PREOP YAMILKA Cefazolin Sodium/Dextrose 1 gm in 50 mls @ 100 mls/hr 03/09/22 15:00 Ancef Duplex IVPB 03/10/22 07:29 Q8H YAMILKA IV Miscellaneous Supplies 1 each 03/09/22 06:00 Iv Access IV 03/09/22 23:59 DIRECTED YAMILKA Ondansetron HCl 4 mg 03/09/22 06:44 Ondansetron 4 Mg/2 Ml Vial IVP Q6H PRN PRN Nausea Oxycodone HCl 0 mg 03/09/22 06:44 Oxycodone 5 Mg Tab PO Q3H PRN PRN Pain Sodium Chloride 0 ml 03/09/22 06:00 Normal Saline Flush 10 Ml Syr IV 03/09/22 23:59 PRN PRN Sodium Chloride 0 ml 03/09/22 06:00 Normal Saline 10 Ml Vial IJ 03/09/22 23:59 DIRECTED PRN Sterile Water 0 ml 03/09/22 06:00 Water,Injection,Sterile 10 Ml Vial IJ 03/09/22 23:59 DIRECTED PRN PFSH Active Problems Active Problems: Problem Status Onset Code Urine incontinence R32 Essential hypertension I10 Osteopenia M85.80 Left knee DJD M17.12 BV (bacterial vaginosis) N76.0, B96.89 Urge incontinence N39.41 Pessary maintenance Z46.89 Medical History Medical History Arthritis of right knee s/p TKA on 08/14/18 Cystocele Stage II. Mild DAVID. Family history of bladder cancer Hammertoe of left foot Vaginal pessary in situ Surgical History Surgical History (Updated 09/21/22 @ 06:33 by Felicia Brenner) Hx of colonoscopy Hx of dilation and curettage S/P right knee arthroscopy Status post left foot surgery Status post total right knee replacement (08/14/18) DOS: 08/14/18 Dr. Ames Tobacco Smoking/Tobacco Use Status: Never Alcohol Alcohol Intake: current Alcohol intake frequency: holidays/special occasions only Alcohol type: beer and wine Substance Use Substance use: Never Substance use type: does not use Details: alcohol: month ago Prental History History 2 Para Hx # Term Pregnancies 2 Multiple births Hx # Pregnancies Ectopic pregnancies AB induced Hx Number of Living Children AB spontaneous Vital Signs and Lab Results Vital Signs Most Recent Vital Signs in EMR: Most Recent Vital Signs Temp Pulse Resp BP Pulse Ox 36.5 C 99 H 18 121/109 H 98 03/09/22 06:22 03/09/22 06:22 03/09/22 06:22 03/09/22 06:22 03/09/22 06:22 Lab Results Blood Type / Crossmatch: No Data to Display Complete Blood Count: White Blood Count 5.01 10^3/uL (4.4-10.8) 03/07/22 09:00 Red Blood Count 4.43 10^6/uL (3.93-5.22) 03/07/22 09:00 Hemoglobin 14.0 g/dL (11.2-15.7) 03/07/22 09:00 Hematocrit 42.4 % (36.0-46.0) 03/07/22 09:00 Platelet Count 180 10^3/uL (130-400) 03/07/22 09:00 Complete Metabolic Panel: Sodium Level 141 mmol/L (136-145) 03/07/22 09:00 Potassium Level 3.8 mmol/L (3.5-5.1) 03/07/22 09:00 Chloride Level 104 mmol/L (98-107) 03/07/22 09:00 Carbon Dioxide Level 28.7 mmol/L (21.0-32.0) 03/07/22 09:00 Blood Urea Nitrogen 15 mg/dL (7-18) 03/07/22 09:00 Creatinine 0.8 mg/dL (0.55-1.02) 03/07/22 09:00 Calcium Level 8.9 mg/dL (8.5-10.1) 03/07/22 09:00 Glucose Level 91 mg/dL (74-106) 03/07/22 09:00 Liver Function Panel: No Data to Display Coagulation Panel: No Data to Display Cardiac Panel: No Data to Display Arterial Blood Gas: No Data to Display Venous Blood Gas: No Data to Display Pancreas Panel: No Data to Display Thyroid Panel: No Data to Display Infectious Disease: No Data to Display Blood Cultures: No Data to Display Toxicology Panel: No Data to Display Anesthesia Assessment and Plan Anesthesia History Personal History: No History of Anesthesia Complications Family History: No Family History of Anesthesia Complications Exercise Tolerance Exercise Tolerance: Metabolic Equivalents>4 Pertinent Negatives Pertinent Negatives: No Symptoms of GERD, No Major Cardiovascular Symptoms or Complaints and No Major Pulmonary Symptoms or Complaints Cardiac & Pulmonary Exam Cardiac Exam: Normal S1/S2 Heart Sounds Pulmonary Exam: Clear Bilateral Breath Sounds Implantable Cardiac Device Does patient have a Pacemaker or an ICD?: No Airway Exam Known Difficult Airway: No Mallampati Class: 1 Mouth Opening: Normal (> 3cm) Thyromental Distance: Greater than 3 cm Neck Range of Motion: Full ROM Neck Circumference: Normal Teeth Condition: Normal Dentition ASA Classification ASA Score: ASA 2 Emergency Case?: No NPO Status NPO Status: NPO Clears >2 hours, Solids >8 hours Anesthesia Plan Resuscitation Status: Full Code Anesthesia Technique: Spinal Anesthesia Airway Planned: Natural Airway Pain Management: Surgeon and patient request nerve block Monitors Used: Standard Monitors
[2022-03-09] MEDS: ceFAZolin 2 GM/50 ML BAG IVPB (07:39)
--- NOTE | 2022-03-09 08:24 | W.ANESNERVE ---
Nerve Block Single Injection Procedure Date and Time Date Performed: 03/09/22 Procedure Start: 07:13 Location Where Procedure Performed Procedure Location: Day Surgery Unit Reason Performed: Postoperative Analgesia Requesting Provider: Maximiliano Ames Timeout Performed Timeout Performed: Yes Monitoring Used ECG, Blood Pressure, SpO2 and See EMR for corresponding vital signs Sterility Sterility: Hand Hygiene, Surgical Cap, Surgical Mask, Sterile Gloves, Eye Protection and Chlorhexidine Sedation Given During Procedure Sedation Given (Indicate Dose Given): No Sedation given Patient Mental Status Patient Mental Status: Awake Nerve Block 1st Nerve Block: Laterality: Left Block Type: Adductor Canal Needle / Catheter Used: 100mm SonoPlex II Local Anesthetic Bolus (Indicate Dose Given): Lidocaine used for local infiltration of skin, Injected in 3-5ml increments after negative blood aspiration and Bupivacaine 0.25% Dose:: 10mL Additives (Indicate Dose Given): None Ultrasound: Sterile probe cover and gel used Ultrasound Image Saved?: Yes Nerve Stimulator: Not Used Paresthesia: None Procedure Tolerated: No Complications Procedure Outcome: Successful Performed By: Krystyna Burrell
--- NOTE | 2022-03-09 10:20 | W.ANESPOSTOP ---
Postoperative Evaluation Date, Time and Location Date Performed: 03/09/22 Time Performed: 10:00 Patient Location: PACU Vital Signs Most Recent Imported Vital Signs: Most Recent Vital Signs Temp Pulse Resp BP Pulse Ox 36.4 C L 64 16 105/58 L 95 03/09/22 10:00 03/09/22 10:00 03/09/22 10:00 03/09/22 10:00 03/09/22 10:00 Pain Score Most Recent Pain Score: Most Recent Pain Score Pain Level 0 03/09/22 10:00 Assessment Mental Status: Awake (Alert & Oriented to Patient Baseline) Airway and Respiratory Function: Patent airway with normal (patient baseline) respiratory exam Cardiovascular Function: Hemodynamically Stable Hydration Status: Adequately Hydrated Nausea & Vomiting: No Nausea or Vomiting Pain: Pt. Denies Any Pain Peripheral Nerve Block: Patient did not receive a nerve block
--- NOTE | 2022-03-09 13:38 | IN_ITS ---
Date of service: 03/09/22 Time of Service: 11:57 PT Notes Visit Reasons: Left TKA Physical Therapy Day Surgery Initial Evaluation Date: 03/10/2022 Referring Doctor: ELIGIO Ortez PT Orders: PT CONSULT: S/P Ortho Surgery Precautions: WBAT on the L LE with AD. Patient Profile/Admitting Diagnosis: Patient is a 71-year-old female with degenerative joint disease of the L knee and is S/P left total knee arthroplasty on postoperative day 0. PMHX: Medical History?(Updated 02/16/22 @ 09:43 by Belem Wilde) Arthritis of right knee s/p TKA on 08/14/18 Cystocele Stage II.? Mild DAVID. Family history of bladder cancer Hammertoe of left foot Vaginal pessary in situ Surgical History?(Updated 02/16/22 @ 09:43 by Belem Wilde) S/P right knee arthroscopy Status post left foot surgery Status post total right knee replacement (08/14/18) DOS: 08/14/18 Dr. Ames Social History/Home Situation: Lives in a private home with a ramp to enter. Equipment Owned/DME: FWW Subjective: Reports shooting pain through her L leg coming from the knee with weight bearing initially with a sensation of the left thigh muscle giving in minimally. Reports being lightheaded with BP softening to 80s/50s after a short walk. Objective: General Observation: Supine in bed. DAVEY wraps to L LE. Crycoff to L knee. Mental Status: Alert adn oriented x 4 Pain: 5/10 pain through the L knee and leg with weight bearing ROM: Right Lower Extremity: Hip flexion WFL. Hip abduction WFL. Knee flexion WFL. Ankle dorsiflexion WFL. Ankle plantarflexion WFL. Left Lower Extremity: Able to do SLR x 10 up to 30 degrees with pain at end of range. Hip abduction WFL. Knee flexion 0 to 80 degrees. Knee extension 80 -0 degrees. Ankle dorsiflexion WFL. Ankle plantarflexion WFL. Strength: Right Lower Extremity: Hip flexors 5/5. Hip abductors 5/5. Knee flexors 5/5. Knee extensors 5/5. Ankle dorsiflexors 5/5. Ankle plantarflexors 5/5. Left Lower Extremity:Hip flexors 3-/5. Hip abductors 4-/5. Knee flexors 3-/5. Knee extensors 3/5. Ankle dorsiflexors 5/5. Ankle plantarflexors 5/5. Sensation: Intact as to pain and light pressure in B LE Bed Mobility/Transfers: Supine to sit stand by assist Sit to stand contact guard assist Stand to sit contact guard assist Bed to chair minimal assist Gait: Able to walk from bedside to bedside recliner about 10 feet using step-to gait pattern with FWW with minimal assist with report of poor quad activation on L. Completed another 20 feet in the hallway before needing to sit down due to L knee giving way and patient reporting increasing lightheadedness with BP softening to 8os/50s. Further walking was deferred to let patient recover from hypotensive episode. One and a half hours later, patient was able to complete functional mobility training walking 50 feet more with FWW with much improved left quad activation on level surface. Balance: Static Sitting: Normal Dynamic Sitting: Good Static Standing: Fair Dynamic Standing: Fair Special Tests: Mobility Limitations Standardized Measure [facility] 6 clicks Basic Mobility Inpatient Short Form: Raw Score: 18 CMS Score: 47% deficit Informed Consent/Education: Patient instructed in purpose of PT consult. Education and training on initial set of exercises that can be done at home have been completed with patient with reference to the [place] jasmine. Assessment: Patient requires the use of a front wheel walker for all mobility ADL performance in order to maximize independence and reduce fall risk. Needed 2 visits today due to lightheadedness and poor left quad activation. patient presents with clinical signs and symptoms consistent with current/admitting diagnoses that have resulted to mobility limitations, gait instability, generalized weakness, and impairment of motor control as demonstrated by the following impairment level findings: 1. Decreased strength to left knee major muscle groups 2. Impaired standing balance 3. Limitation of joint range of motion in left knee flexion Impairments are contributing to the following functional limitations: 1. Inability to safely ambulate without assistive device 2. Increase completion time for mobility ADL performance 3. Increased fall risk Patient is assessed as a 47256 moderate complexity based on the following: History: 71-year-old female with impairment level findings, functional limitations, and past medical history as indicated above Examination: Demonstrable impairment in strength, balance, and mobility level with underlying impairments and functional limitations as documented above Presentation: Evolving Decision Makin moderate complexity Goals: N/A. PT evaluation and 1-2 treatment sessions only for functional mobility training using recommended AD and for HEP instruction. Leesa they did not givePlan of Care/Treatment Plan: N/A. PT evaluation and 1-2 treatment session only for functional mobility training using recommended AD and for HEP instruction. DISCHARGE RECOMMENDATIONS: [] Home with no services [] [] Home with services [specify] [X] Home with outpatient PT. Home when medically cleared by orthopedic surgeon. OP PT to maximize functional mobility outcomes and facilitate independent community ambulation without an assistive device. [] SNF for continued rehabilitation [] [] [facility] Care [] [] SNF versus LTC based on ability to participate and progress [] TREATMENT CODE/TIME: 75343 x 20 minutes, 68578 x 11 minutes and x 21 minutes beginning at 11:57 AM and 13:38 PM. Thank you for the opportunity to participate in the care of this patient. Razia Fernández PT, DPT, CLT [facility] [place], [place]
--- NOTE | 2022-03-09 20:08 | ROE_ITS ---
Date of service: 03/09/22 Time of Service: 09:15 Operative Note Operative Note DATE OF PROCEDURE: 03/09/22 PRE-OP DIAGNOSIS: Knee Osteoarthritis POST-OP DIAGNOSIS: same PROCEDURE: Left Total Knee Replacement SURGEON: Maximiliano Ames ASSEMBLER SURGICAL GARMENT: Leydi Hand ANESTHESIA TYPE: Spinal Refer to Anesthesia Record ESTIMATED BLOOD LOSS: 200 PATHOLOGY: none sent COMPLICATIONS: None Patient was transported to: PACU Patient's condition: stable Implants: 1. Depuy Attune Cruciate Retaining Femoral Component, Size 4 2. Depuy Attune Rotating Platform Tibial Component, Size 3 3. Depuy Attune 4x10 CR,RP Poly 4. Depuy Attune Patellar Component, Size 35 Indications: I have seen Josefa in clinic for symptoms of knee arthritis, confirmed with radiographic findings. Josefa has exhausted nonoperative methods and was having significant limitations in daily function and desired better function and less pain. I discussed the technical details of a knee replacement. I explained the risks of the procedure to include, but not limited to, bleeding, infection, pain, stiffness, fracture, damage to nerves and vessels, damage to muscles and tendons, loosening, need for repeat procedure, blood clot and cardiopulmonary demise. Despite these risks, she elected to proceed. Findings: There was significant signs of arthritis throughout the knee. Procedure Description: Josefa was greeted in the preoperative holding area where the correct side was identified and marked. The consent was reviewed with the patient and signed. The history and physical was updated. All questions were answered. Preoperative mediacations were administered: Acetaminophen 1000mg, Celebrex 400mg, and Gabapentin 300mg. An adductor canal block was then administered by the anesthesia team in the P ACU. Josefa was taken back to the operating room. A spinal anesthestic was then administered. The patient was placed into the supine position on the operating room table. A nonsterile tourniquet was placed high onto the leg but only used for cementing. Posts were placed for positioning during the procedure. All bony prominences were well padded. Prophylactic antibiotics in the form of Cefazolin were administered. 1g of Tranxemic Acid was given intravenously within 30 minutes of incision. The left leg was then prepped with Chloraprep and draped in a standard fashion with impervious stockinette and extremity drape. A second prep with Chloraprep was performed prior to placing Ioband. A timeout to confirm correct identity, side and site, procedure, allergies, anesthesia, and medical concerns was performed. With the knee in some flexion, a midline incision was made overlying the knee. Full thickness skin flaps were raised once the extensor mechanism was encountered. These were raised medially and laterally. Any bleeding was controlled with electrocautery. Once the extensor mechanism was fully exposed, a medial parapatellar arthrotomy was performed in a flexed position. All bleeding from the arthrotomy and the geniculate arteries was coagulated. A medial subperiosteal peel was performed with electrocautery to the midcoronal plane. Due to the significant varus def ormity the entire medial tibial plateau was exposed. The fat pad was removed while keeping the patellar tendon protected. The anterior distal femur synovium was removed for later visualization. The ACL and PCL were resected and the anterior horn of the lateral meniscus was transected. The knee was then flexed with the patella everted. Large osteophytes from the tibia were removed. Large osteophytes from the femur were removed. Using a step drill, and based on preoperative templating, the femoral canal was entered. This was done with a step drill without any difficulty. The intramedu llary distal femoral cut guide was inserted, set to a 5 degree valgus cut and 9mm cut thickness. The distal femoral cut guide was then held in position and pinned. With the soft tissues protected, the distal cut was performed. This was passed over a few times to ensure a planar cut. I then turned attention to the tibia. The extramedullary guide was placed onto the leg. The distal aspect was slid medial to adjust for position of center of ankle and stay in line with shaft of the tibia. Approximately 3-5 degrees of posterior slope was kept in the proximal cutting guide. The center of the guide was aligned with the PCL. The stylus was used to assess cut thickness. The medial side, most involved side, was set for a 4mm cut. This was then held in position and pinned into place with 2 additional pins and a cross pin for stability. The medial and lateral collateral ligaments were protected and the cut was performed. With this completed, it was assessed and noted to be of appropriate dimensions. The guide was removed. A spacer block was inserted and the knee was brought into extension. The 8mm spacer block provided full extension, without hyperextension and with stability of both the medial and lateral collateral ligaments was assessed. The pins from the femur and the tibia were then removed. The distal femur was then sized. The anterior stylus was placed onto the l ateral ridge of the anterior femur. This indicated a size 4 femur. The external rotation of the guide was adjusted to 3 degrees to match the epicondylar axis, perpendicular to Como?s line. The 4-in-1 cutting guide was the placed. The posterior medial femur cut was evaluated and appeared of good thickness. The spacer block was inserted underneath the cutting guide and stability was confirmed in 90 degrees of flexion. An zoran wing was used to confirm appropriate position of the anterior cut to avoid notching. This cutting guide was ensured to be flush on the cut surface and then pinned into place with headed pins. While protecting the soft tissues, quad tendon, and collateral ligaments, the anterior and posterior cuts were performed with a saw. The central two pins were removed and the posterior and anterior chamfers were cut next. The notch-cutting guide was placed. This was pinned to lateralize the femoral component as much as possible while keeping it flush on the cut surface. This was then pinned into position. A reciprocating saw was used to make the small notch cut. A trial CR femoral component was then inserted, impacted down to the cut surfaces, and the lug holes were drilled. A provisional trial tibial component was placed and the knee was brought through range of motion. The polyethylene was trialed until there was good flexion and extension with excellent stability to the medial and lateral collaterals. The patella was tracking without thumbs. The tibial cut surface was fully exposed. The medial and lateral menisci were removed. The tibia was then sized as a 3. The tibia had been previously marked during trialing to correspond to the center of the tibial component to help with rotation. The trial was aligned to this delia, approximately rotated to the medial 1/3rd of the tibial tubercle. The trial was pinned into place. The tibia was prepared with a reamer and a keel punch. The knee was then brought into extension and the patella was measured as 23mm. Using the patellar clamp and cut guide, this was resected to a flat surface with at least 13mm of thickness remaining. The size 35 patella fit the best. This was oriented and then clamped into position. The lugs were drilled. The trial components were removed. The final components, except for the polyethylene were opened on the back table. The periosteal and capsular tissues, especially posteriorly, around the knee were then systematically injected with a periarticular cocktail consisting of 246mg of Ropivacaine, 0.5mg of Epinephrine, 0.08mg of Clonidine, and 30mg of Ketorolac, diluted to 100cc.. The tourniquet was then inflated to 275mmHg. The knee was thoroughly irrigated with a pulse lavage and dried. On the back table, with the implants opened, the cement was mixed. 2 batches of antibiotic laden medium viscosity cement were prepared with vacuum assistance. After the cement was ready it was placed on to the back side of the tibial component. A small amount was placed onto the posterior flange of the femur. Cement was manual pressurized and impregnated into the cut surface of the tibia. The tibial component was then inserted into the cut surface and impacted into position. Excess cement was removed and the component was reimpacted. Again, excess cement was removed and our attention was then turned to the femur. The femoral cut surface was once again dried and cement was manually impacted into the cut surface. The femoral component was lined with the lug holes and impacted. Excess cement was removed. It was ensured to be down against the cut surface. The trial polyethylene was then inserted and the leg was brought out into full extension for the duration of the cement curing process, approximately 18min. Cement was lastly manually impacted into the cut surface of the patella and the patellar button was clamped into position and held. During this process attention was turned to the gutters of the knee and for all interfaces for any excess cement. While the cement was hardening, the knee was irrigated with Surgiphor Betadine solution. It was allowed to sit in the knee for 3 minutes and then it was thoroughly irrigated with saline. After the cement had finally cured, approximately 18min, the clamp was removed from the patella and the knee was taken through range of motion. A size 10mm polyethylene component provided the best range of motion and stability with less than 2mm gapping with medial and lateral stress and full extension without significant hyperextension. The patella was tracking with a no-thumbs technique. The trial poly was removed and once again the knee was checked for any loose, excess, or errant cement. The poly component was then inserted into position after cleaning and drying the tibial tray. The capsule was then reapproximated with a No. 1 Vicryl at multiple locations. The capsule was finally closed with a No. 2 Stratafix, barbed suture. The tourniquet was then released and the arthrotomy appeared watertight without significant bleeding. The second dosing of 1g TXA was started. Deep tissues were then reapproximated with 0 Vicryl and 2-0 Vicryl. The skin was closed with a running 3-0 Monocryl in a subcuticular fashion. This was reinforced with skin glue. A Mepilex silver dressing was applied along with a fhpo-ny-ropof DAVEY wrap. A CryoCuff was applied. Josefa was transferred to the hospital bed without difficulty an suffering no apparent complication. She has a good prognosis. Physical therapy will start today and without restrictions, weight-bearing as tolerated. Aspirin 81mg BID will be used for DVT prophylaxis.
== END 2022-03-09 14:37 | disposition home or self-care (01) ==
PROVIDERS: PCP Internal Medicine; Visit Provider Student in an Organized Health Care Education/Training Program
PROC: (CPT 27447; principal; 2022-03-09 07:45)
DX: M17.12 Unilateral primary osteoarthritis, left knee (principal); I10 Essential (primary) hypertension
CPT/HCPCS: 27447; C1776; 76942; 97162; 97530; J0690; J1100; J2370; J2405

== ENCOUNTER 2022-03-24 10:50 | Outpatient (CLI) | payer MEDICARE, BC, SELFPAY ==
--- NOTE | 2022-03-24 11:30 | DI.RAD_ITS ---
Exam(s) XR KNEE LT 1V XR STANDING ALIGNMENT EXAM: XR STANDING ALIGNMENT CLINICAL HISTORY: f/u L TKA TECHNIQUE: COMPARISON: CR XR STANDING ALIGNMENT from 02/16/2022 CR XR KNEE LT 1V from 03/24/2022 FINDINGS: AP standing alignment views of both legs and a lateral view of the left knee are interpreted in conju nction. There are mild degenerative changes of both hips and SI joints. There are total knee joint replacements in position bilaterally. No other significant findings seen on the lateral view of the left knee. IMPRESSION: RADIATION DOSE DELIVERED: Total DLP
== END 2022-03-24 10:51 | disposition home or self-care (01) ==
LOC: DIORS 03-29 10:51
PROVIDERS: PCP Internal Medicine; Visit Provider Student in an Organized Health Care Education/Training Program
DX: Z47.1 Aftercare following joint replacement surgery (principal); Z96.652 Presence of left artificial knee joint
CPT/HCPCS: 73560; 77073

== ENCOUNTER → 2022-04-21 09:10 | Outpatient (BNVA) | payer MEDICARE, BC, SELFPAY | PROVIDERS: PCP Internal Medicine; Referring Provider Internal Medicine; Visit Provider Student in an Organized Health Care Education/Training Program | DX: Z47.1 Aftercare following joint replacement surgery (principal); Z96.652 Presence of left artificial knee joint ==

== ENCOUNTER → 2022-06-02 10:09 | Outpatient (BNVA) | payer MEDICARE, BC, SELFPAY | PROVIDERS: PCP Internal Medicine; Referring Provider Internal Medicine; Visit Provider Student in an Organized Health Care Education/Training Program | DX: Z47.1 Aftercare following joint replacement surgery (principal); Z96.652 Presence of left artificial knee joint; Z96.651 Presence of right artificial knee joint; M76.31 Iliotibial band syndrome, right leg ==

== ENCOUNTER → 2022-08-08 09:36 | Outpatient (BNVA) | payer MEDICARE, BC, SELFPAY | PROVIDERS: PCP Internal Medicine; Visit Provider Student in an Organized Health Care Education/Training Program | DX: M76.31 Iliotibial band syndrome, right leg (principal); M17.12 Unilateral primary osteoarthritis, left knee; Z96.651 Presence of right artificial knee joint; Z96.652 Presence of left artificial knee joint | CPT/HCPCS: 99213 ==

== ENCOUNTER 2022-08-23 15:58 | Outpatient (CLI) | payer MEDICARE, BC, SELFPAY ==
--- NOTE | 2022-08-23 13:45 | DI.MRI_ITS ---
Exam(s) MR LOWER JOINT RT WO EXAM: MR LOWER JOINT RT WO CLINICAL HISTORY: pain iliotibial band syndrome rt leg, M76.31 TECHNIQUE: Multiplanar multisequence MRI of the hip was performed. COMPARISON: No exams were available for comparison FINDINGS: MARROW:There is no evidence of fracture, bone contusion, nor avascular necrosis. There are no signif icant osseous lesions.There is no significant osseous excrescence at the femoral head-neck junction t o suggest the presence of cam-type FRANK. EFFUSION: There is no evidence of joint effusion. BURSAE: There is no evidence of trochanteric bursitis. There is no evidence of iliopsoas bursitis. HIP JOINT SPACE: There is relatively symmetric hip joint space narrowing. Subchondral cystic degener ative changes noted in the superolateral aspect of the acetabulum evident. No prominent chondral def ects.There is no hypertrophy of the ligamentum teres nor signal abnormality at the fovea centralis. LABRUM: Some degenerative change evident in the superior labrum. Prominent tear. No evidence parala bral cyst. ISCHIAL TUBEROSITY/HAMSTRING: There is no abnormal intraosseous signal in the ipsilateral ischial tub erosity nor tear of the common hamstrings tendon attachment site at this level. GLUTEUS MUSCLE GROUP: There is some edema in the gluteus medius tendon just above the greater troch c ancer. Also small fluid in this region. OTHER: There is no abnormal intramuscular signal within the quadratus femoris to suggest the presence of impingement syndrome at this level. IMPRESSION: 1. No evidence of fracture, avascular necrosis, nor hip joint effusion. 2. Mild-moderate degenerative change in the hip joint space. Also some degenerative change in the la dejah. No prominent labral tear nor paralabral cyst. 3. Gluteus medius muscle tendon strain/tear with adjacent mild trochanteric bursitis. DATA REPOSITORY:
--- NOTE | 2022-08-23 14:24 | DI.VRAD_ITS ---
PROCEDURE INFORMATION: Exam: MR Right Lower Extremity Joint Without Contrast; Hip Exam date and time: 08/23/2022 1:10 PM Age: 72 years old Clinical indication: Hip; Right; Patient HX: Pain, iliotibial band syndrome. TECHNIQUE: Imaging protocol: Magnetic resonance imaging of the right lower extremity joint without contrast. Exam focused on the hip. COMPARISON: CR XR LEG LONG LENGTH 08/08/2018 11:50 AM FINDINGS: Bones/joints: No hip joint space effusions. The marrow signal of the pelvis and proximal femurs is normal bilaterally. No fractures or avascular necrosis. Bilateral symmetric hip joint space narrowing. Subchondral cystic changes present in the superolateral acetabulum. Labrum: Degeneration of the labrum. Bursae: Small amount of fluid present in the trochanteric bursa. TENDONS: Tendons of iliopsoas group: Unremarkable. No evidence of tear. Tendons of medial compartment of thigh: Unremarkable. No evidence of tear. Tendons of lateral rotators of hip: Unremarkable. No evidence of tear. Tendons of gluteal group: Mild edema present in the right gluteus medius muscle-tendon unit. Muscles: Unremarkable. Soft tissues: Unremarkable. IMPRESSION: 1. Gluteus medius muscle-tendon strain/tear. 2. Mild trochanteric bursitis. 3. Symmetric degenerative changes of the hip joint spaces. Dictated and Authenticated by: Saurav Noble MD. Ordering:SHAHRAM Viera MD
== END 2022-08-23 16:18 ==
LOC: DI 15:59
PROVIDERS: PCP Internal Medicine; Visit Provider Student in an Organized Health Care Education/Training Program
DX: M76.31 Iliotibial band syndrome, right leg (principal); M16.11 Unilateral primary osteoarthritis, right hip; M70.61 Trochanteric bursitis, right hip
CPT/HCPCS: 73721

== ENCOUNTER → 2022-08-24 07:53 | Outpatient (BNVA) | payer MEDICARE, BC, SELFPAY | PROVIDERS: PCP Internal Medicine; Visit Provider Nurse Practitioner Gerontology | DX: N39.46 Mixed incontinence (principal); R39.89 Other symptoms and signs involving the genitourinary system; Z96.0 Presence of urogenital implants | CPT/HCPCS: 51798; 81003; 99214 ==

== ENCOUNTER 2022-09-09 10:50 | Outpatient (CLI) | payer MEDICARE, BC, SELFPAY ==
--- NOTE | 2022-09-09 10:46 | DI.RAD_ITS ---
Exam(s) XR KNEE LT 3V AP,LAT,ELVIN EXAM: XR KNEE LT 3V AP,LAT,ELVIN CLINICAL HISTORY: new antioer left knee pain. TECHNIQUE: 2D digital imaging was performed. Images were obtained. AP, lateral and oblique views w ere obtained. 2D digital imaging was performed of the left knee. Three images were obtained. Merchant,AP and late ral views were obtained. COMPARISON: CR XR KNEE RT 3V AP,LAT,ELVIN from 08/13/2020 FINDINGS: BONES: There are stable post operative changes present. No fracture or dislocation. JOINTS: The orthopedic hardware is in good position. No evidence of hardware loosening. SOFT TISSUE: Normal. IMPRESSION: Stable postoperative changes. DATA REPOSITORY: RADIATION DOSE DELIVERED:
== END 2022-09-09 10:51 | disposition home or self-care (01) ==
LOC: DIORS 10:50
PROVIDERS: PCP Internal Medicine; Referring Provider Internal Medicine; Visit Provider Student in an Organized Health Care Education/Training Program
DX: T84.84XA Pain due to internal orthopedic prosthetic devices, implants and grafts, initial encounter (principal); Z96.652 Presence of left artificial knee joint; M70.61 Trochanteric bursitis, right hip; M76.52 Patellar tendinitis, left knee
CPT/HCPCS: 73562; 99214

== ENCOUNTER → 2022-09-30 09:40 | Outpatient (BNVA) | payer MEDICARE, BC, SELFPAY | PROVIDERS: PCP Internal Medicine; Referring Provider Internal Medicine; Visit Provider Student in an Organized Health Care Education/Training Program | DX: M76.891 Other specified enthesopathies of right lower limb, excluding foot (principal); M76.52 Patellar tendinitis, left knee; Z96.652 Presence of left artificial knee joint; T84.84XA Pain due to internal orthopedic prosthetic devices, implants and grafts, initial encounter | CPT/HCPCS: 99213 ==

== ENCOUNTER → 2022-10-04 13:53 | Outpatient (BNVA) | payer MEDICARE, BC, SELFPAY | PROVIDERS: PCP Internal Medicine; Referring Provider Internal Medicine; Visit Provider Student in an Organized Health Care Education/Training Program | DX: M76.31 Iliotibial band syndrome, right leg (principal) | CPT/HCPCS: 99213 ==

== ENCOUNTER 2023-02-16 18:54 | Outpatient (REF) | payer MEDICARE, BC, SELFPAY ==
[2023-02-16 20:47] LABS: Abs Immature Grans 0.05 10^3/uL (0.0-0.06); Absolute Eosinophil Count 0.22 10^3/uL (0.0-0.7); Absolute Monocyte Count 0.88 10^3/uL (0.1-0.8); Basophils % 0.3; Eosinophils % 1.9; HCT 40.7 % (36.0-46.0); HGB 13.4 g/dL (11.2-15.7); Immature Grans % 0.4; Lymphocytes % 17.5; MCH 30.1 pg (27.0-33.0); MCHC 32.9 % (32.0-36.0); MCV 92 fL (80-95); MPV 11.8 fL (8.0-11.0); Monocytes % 7.7; Neutrophils % 72.2; Platelet Count 218 10^3/uL (130-400); RBC 4.45 10^6/uL (3.93-5.22); RDW 13.4 % (11.7-14.6); RDW-SD 45.7 fL; WBC 11.45 10^3/uL (4.4-10.8)
[2023-02-16 20:53] LABS: Absolute Basophil Count 0.03 10^3/uL (0.0-0.2); Absolute Neutrophil Count 8.27 10^3/uL (1.2-6.7)
[2023-02-16 21:11] LABS: ALT 23 U/L (14-59); AST 18 U/L (15-37); Albumin 3.5 g/dL (3.4-5.0); Alkaline Phosphatase 127 U/L (46-116); Anion Gap 8.8 mmol/L (3-11); BUN 16 mg/dL (7-18); Bilirubin, Total 0.4 mg/dL (0.2-1.0); CO2 27.2 mmol/L (21.0-32.0); CREATININE 0.7 mg/dL (0.55-1.02); Calcium 9.2 mg/dL (8.5-10.1); Chloride 104 mmol/L (98-107); Glucose 83 mg/dL (74-106); Potassium 4.3 mmol/L (3.5-5.1); Sodium 140 mmol/L (136-145); Total Protein 6.9 g/dL (6.4-8.2)
== END 2023-02-16 18:55 | disposition home or self-care (01) ==
LOC: NCHCN 18:54
PROVIDERS: PCP Internal Medicine; Visit Provider Family Medicine
DX: I10 Essential (primary) hypertension (principal); R68.84 Jaw pain
CPT/HCPCS: 80053; 84443; 85025

== ENCOUNTER → 2023-03-01 08:54 | Outpatient (CLI) | payer MEDICARE, BC, SELFPAY ==
--- NOTE | 2023-03-01 10:30 | DI.US_ITS ---
APPROVED REPORT EXAM: Comprehensive 2D, Doppler, and color-flow Echocardiogram Patient Location: Out-Patient [place] Mechanic: Capri Austin RDCS (AE) Indications: GARY Other Information Study Quality: Good Conclusion Normal left ventricular wall thickness and chamber size. Ejection fraction is 65%. Wall motion is n ormal. There is stage I diastolic dysfunction which is normal for age Normal right ventricular size and systolic function Both atria are normal in size Aortic valve is mildly sclerotic, and trileaflet with trace regurgitation Mild mitral annular calcification. Trace mitral regurgitation Normal tricuspid valve with trace regurgitation. Estimated right ventricular systolic pressure is 27 mmHg Wall motion Left Ventricle The left ventricle is normal size. The left ventricular systolic function is normal. The left ventric ular ejection fraction is within the normal range. There is normal left ventricular wall thickness. T here is normal LV segmental wall motion. There is no ventricular septal defect visualized. LVEF is 65 %. Right Ventricle The right ventricle is normal size. The right ventricular systolic function is normal. Atria The left atrium size is normal. The right atrium size is normal. The interatrial septum is intact wit h no evidence for an atrial septal defect. Aortic Valve The Aortic valve is mildly sclerotic. Aortic valve is trileaflet. There is no aortic valvular stenosi s. Trace aortic regurgitation. Mitral Valve There is mitral annular calcification. No evidence of mitral valve stenosis. Trace mitral regurgitati on. Tricuspid Valve The tricuspid valve is normal in structure. There is no tricuspid valve stenosis. Trace to mild tricu spid regurgitation. The RVSP is 27.4 mmHg. Pulmonic Valve The pulmonary valve is normal in structure. There is no pulmonic valvular stenosis. Trace pulmonic re gurgitation. Great Vessels The aortic root is normal in size. The ascending aorta is normal in size. Aortic arch is normal in ca liber. IVC is normal in size and collapses >50% with inspiration. Pericardium There is no pericardial effusion. 2D Dimensions IVSD d PLAX 0.91 cm F: 0.6-1.0 Ao Root d 2.84 cm F: 2.7 - 3.3 LVPW d PLAX 0.95 cm F: 0.6 - 1.0 Ao Asc Diam d 3.09 cm F: 2.3 - 3.1 LVID d PLAX 4.32 cm F: 3.8 - 5.2 LVDs 2.76 cm F: 2.2 - 3.5 LV EF Teichholz 66.2 % FS 36.20 % LV EDV (Teich) 84.0 mL LV ESV (Teich) 28.4 mL M-Mode TAPSE 1.90 cm (M/F) >1.7 Auto EF LV EDV A4C 68.5 mL LV EDV A2C 87.3 mL LV EDV BP 78.4 mL LV ESV A4C 22.7 mL LV ESV A2C 29.4 mL LV ESV BP 25.8 mL LVEF(%) A4C 66.9 % LVEF(%) A2C 66.3 % LVEF(%) BP 67.1 % LV SV A4C 45.8 ml LV SV A2C 57.8 ml LV SV BP 52.6 ml LV CO A4C 2.5 L/min LV CO A2C 3.5 L/min LV CO BP 3.0 L/min HR A4C 54.22 BPM HR A2C 60.29 BPM LV EDV Index (BP) LA Volume LA Length A4C 4.8 cm LA Length A2C 4.5 cm LA Area A4C s 12.25 cm2 LA Area A2C s 13.01 cm2 LA Vol A4C A-L 26.66 mL LA Vol A2C A-L 31.68 mL LA Vol Biplane A-L 29.8 mL LA Vol/BSA A4C A-L LA Vol/BSA A2C A-L LA Vol/BSA BP A-L 18.9 mL/m2 LA Vol A4C MOD 25.3 mL LA Vol A2C MOD 29.6 mL LA Vol BP MOD 28.0 mL RA Volume RA Area A4C 6.1 cm2 RA ESV A4C (A-L) 8.8mL RA Vol/BSA A4C A-L RA Length A4C 3.6 cm RA ESV A4C (MOD) 9.1mL LV Diastology MV E' medial 0.077 (>0.07 m/s) MV E Vmax 0.78 (0.4-1.3 m/s) MV E/E' MED 10.22 (<14) MV A Vmax 1.10 (0.4-1.3 m/s) MV E' lateral 0.077 (>0.1 m/s) E/A Ratio 0.7 MV E/E' LAT 10.22 (<14) MV E' Average 0.077 m/s MV E/E'(average) 10.22 Aortic Valve AoV Vmax 2.17 m/s LVOT Vmax 1.35 m/s AoV Peak Grad 43.0 mmHg LVOT Peak Grad 7.3 mmHg AoV Area (Vmax) 1.71 cm2 LVOT VTI 0.261 m AoV VTI 0.447 m LVOT Mean Grad 3.7 mmHg AoV Mean Chi. 1.49 m/s LVOT SV 71.79 mL AoV Mean Grad 10.1 mmHg LVOT Diam s 1.85 cm AoV Area (VTI) 1.61 cm2 AV Regurg Peak Gr. 67.00 mmHg Velocity Ratio 0.62 AR Decel [place] 2.4m/sec2 AR DT 1695 msec AR PHT 491 msec AR Vmax 4.09 m/s Mitral Valve MV DT 260 (160-240 msec) MV Vmax TIPS 1.05 m/s MV Mean Grad 1.5 (<2mmHg) MV VTI 0.309 m Pulmonary Valve PV Vmax 1.16 (0.5-1.5 m/s) RVOT Vmax 0.85 m/s PV Peak Grad 5.4 mmHg RVOT Peak Gr. 2.9 mmHg PV Mean Chi 0.77 m/s RVOT VTI 0.168 m PV Mean Grad 2.8 mmHg RVOT Mean Gr. 1.7 mmHg Tricuspid Valve RA Pressure 3.00 mmHg TR Vmax 2.47 m/s TV S' 0.20 m/s TR Peak Grad 24.4 mmHg RVSP (TR) 27.4 mmHg
== END ==
PROVIDERS: PCP Internal Medicine; Visit Provider Family Medicine
DX: R06.09 Other forms of dyspnea (principal)
CPT/HCPCS: 93306

== ENCOUNTER 2023-03-10 11:04 | Outpatient (CLI) | payer MEDICARE, BC, SELFPAY ==
--- NOTE | 2023-03-10 10:30 | DI.RAD_ITS ---
Exam(s) XR KNEE LT 2V AP,LAT EXAM: XR KNEE LT 2V AP,LAT INDICATION: HISTORY OF L TKA. COMPARISON: CR XR KNEE LT 3V AP,LAT,ELVIN from 09/09/2022 TECHNIQUE: 2D digital imaging was performed. Two views. FINDINGS: There has been no change in the alignment the total knee prosthesis. No suspicious bony lesions. DATA REPOSITORY: RADIATION DOSE DELIVERED:
== END 2023-03-10 11:05 | disposition home or self-care (01) ==
LOC: DIORS 11:05
PROVIDERS: PCP Internal Medicine; Referring Provider Internal Medicine; Visit Provider Student in an Organized Health Care Education/Training Program
DX: Z47.1 Aftercare following joint replacement surgery (principal); Z96.652 Presence of left artificial knee joint
CPT/HCPCS: 99213; 73560

== ENCOUNTER → 2023-03-30 00:43 | Outpatient (CLI) | payer MEDICARE, BC, SELFPAY ==
--- NOTE | 2023-03-30 | DI.NM_ITS ---
APPROVED REPORT Exam: Exercise Treadmill Patient Location: Out-Patient Room/Bed: Stress Nurse: Eve Najera RN Ordering Provider:MALDONADO LOERA, Contact Number: [phone] BMI: 27.33 Baseline Rhythm: Sinus Rhythm Comment: Rare PAC Indications: Dyspnea on Exertion Medical History Medical History: GARY, HTN, overweight Cardiac Medications: Amlodipine, multivitamin, lisinopril Allergies: Tramadol, lisinopril Cardiac Risk Factors: Family hx, HTN Previous Cardiac Procedures: None Pretest Chest Pain Characteristics: None Exercise History: Physically active, Physical Disabilities: None Lung Sounds: Clear to auscultation Heart Sounds: Regular Stress Test Details Test: Exercise stress testing was performed using a Enrique protocol. Nuclear Acquisition: Rest Tc-99m/Stress Tc-99m 1 day Rest Isotope: Tc-99m Sestamibi. Dose: 10.7 Date: 03/30/2023 Injection Time: 0840 Stress Isotope: Tc-99m Sestamibi. Dose: 32.8 Date: 03/30/2023 Injection Time: 1010 HR Resting HR Supine: 61 bpm Max Heart Rate (APMHR): 146.180487 bpm Resting HR Standin bpm Target HR (85% APMHR): 124.634467 bpm Max HR Achieved: 150 bpm % of APMHR: 102.74 Recovery HR: 86 bpm HR response to stress: Normal HR response to stress BP Resting BP Supine: 140/72 mmHg Resting BP Standin/78 mmHg Max BP: 168/72 mmHg Recovery BP: 136/64 mmHg BP response to stress: Normal blood pressure response to stress. ECG Resting ECG: Sinus Rhythm Ectopy: Rare PAC Stress ECG: Sinus Tachycardia ST Change: No significant ST segment changes noted Arrhythmia: Rare PVC, couplet Recovery ECG: Sinus Rhythm Recovery ST Change: No significant ST segment changes noted Recovery Arrhythmia: None Clinical Reason for Termination: Target HR Achieved, Dyspnea Stress Symptoms: Mild SOB Exercise duration: 04 min59 sec Highest Stage Reached: Stage 2: 2.5 mph at 12% grade. Exercise capacity: 7.02 METs Angina Score: None Rate Pressure Product: [id number] Stress ECG Conclusion 1. Resting electrocardiogram was within normal limits 2. Patient exercised on the Enrique protocol and completed a workload of 7 METS 3. Normal heart rate and blood pressure response to exercise. The patient achieved 100% of predicted heart rate for age 4. The electrocardiographic portion of the test did not demonstrate any changes of myocardial ischemi a 5. There were no significant dysrhythmias 6. See MPI report Stress Test Summary STAGE Time (mins) Speed (mph) Grade (%) HR BP SpO2 SYMPTOMS METS Supine 61 140/72 97 Standing 72 152/82 1 3 1.7 10 130 158/82 95 Mild SOB 4.5 1 min recovery 133 168/72 3 min recovery 87 148/64 6 min recovery 86 136/64 97 MPI Conclusion Myocardial perfusion is normal without ischemia or evidence of prior infarction EF is 72% with normal wall motion Radiologist Interpretation Radiologist Interpretation by: Yamil Stallings MD Interpretation Date/Time: 03/30/2023 17:03:59
== END ==
PROVIDERS: PCP Internal Medicine; Visit Provider Family Medicine
DX: R06.09 Other forms of dyspnea (principal)
CPT/HCPCS: 78452; 93016; 93018; 93017

== ENCOUNTER → 2023-06-01 00:58 | Outpatient (CLI) | payer MEDICARE, BC, SELFPAY ==
--- NOTE | 2023-06-01 | DI.MAMMO_ITS ---
Exam(s) MAMMO SCREENING EXAM: MAMMO SCREENING CLINICAL HISTORY: SCREENING,Z12.31 TECHNIQUE: Bilateral full field digital CC and MLO mammographic images were obtained with 3D tomosyn thesis and utilizing computer aided detection (CAD). COMPARISON: Available for comparison. FINDINGS: Masses/Architectural Distortion: None seen. Microcalcifications: No suspicious pleomorphic-type are seen. Skin Thickening/Nipple Retraction: None. IMPRESSION: 1. No significant interval change with no specific features of malignancy noted. 2. Unless there is more urgent need, screening mammography is recommended, as per [place] guidelines. BI-RADS Category 1 - Negative Breast Density - Category C - Heterogeneously dense Breast density category C or D implies that the patient has dense breast tissue. Dense breast tissue is very common and is not abnormal but dense breast tissue can make it harder to find cancer on a ma mmogram. Also, dense breast tissue may increase their breast cancer risk. This information about the result of the mammogram report was provided to the patient to raise their awareness. Use this report when you speak with the patient about their risks for breast cancer, which includes their family hist ory. At that time, you may recommend for more screening tests (Ultrasound or MRI) as they might be us eful based on their risk. A negative radiographic report should not delay biopsy if a dominant or clinically suspicious mass is present. Up to ten percent of cancers are not identified on mammography. A negative report may reinforce clinical impression. Adenosis and dense breasts may obscure an underlying neoplasm. False positive reports average 6 to 10%. Patient will receive a letter notifying them of these results.
== END ==
PROVIDERS: PCP Internal Medicine; Visit Provider Internal Medicine
DX: Z12.31 Encounter for screening mammogram for malignant neoplasm of breast (principal)
CPT/HCPCS: 77063; 77067

== ENCOUNTER → 2023-08-24 08:44 | Outpatient (BNVA) | payer MEDICARE, BC, SELFPAY | PROVIDERS: PCP Family Medicine; Visit Provider Nurse Practitioner Gerontology | DX: R32 Unspecified urinary incontinence (principal); R33.8 Other retention of urine; R31.29 Other microscopic hematuria | CPT/HCPCS: 51798; 81003; 99214 ==

== ENCOUNTER → 2023-11-27 08:17 | Outpatient (BNVA) | payer MEDICARE, BC, SELFPAY | PROVIDERS: PCP Nurse Practitioner Family; Referring Provider Nurse Practitioner Family; Visit Provider Psychiatry & Neurology Neurology | DX: G51.39 Clonic hemifacial spasm, unspecified (principal) | CPT/HCPCS: 99215 ==

== ENCOUNTER → 2023-12-11 01:54 | Outpatient (CLI) | payer MEDICARE, BC, SELFPAY ==
[2023-12-11] MEDS: Gadoterate meglumine 20 ML VIAL 13 ML IVP (10:41)
--- NOTE | 2023-12-11 10:55 | DI.MRI_ITS ---
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 TECHNIQUE: Multiplanar multisequence MRI of the brain and internal auditory canals was performed. CONTRAST MATERIAL: IV Contrast: 13 mL of Dotarem contrast administered. COMPARISON: No exams were available for comparison FINDINGS: VENTRICLES AND EXTRA AXIAL SPACES: Normal in size and morphology for the patient's age. HEMORRHAGE: None. CEREBRAL PARENCHYMA: No focus of restricted diffusion to suggest acute infarct. No space-occupying le leia identified. There are multiple nonenhancing areas in the white matter on the FLAIR and T2 weight ed images most consistent with chronic microvascular ischemic disease. MIDLINE SHIFT: None. BRAINSTEM/CEREBELLUM: Normal. CALVARIUM: Normal. ENHANCEMENT: No suspicious enhancement identified. VISUALIZED PARANASAL SINUSES/MASTOIDS: Clear. [place]: Normal flow void. PIT[place]: Unremarkable. IAC/CP ANGLE: The internal auditory canals are within normal limits. The cerebellar pontine angles ar e unremarkable. No enhancing lesions are seen. Visualized portion of the facial nerves appear within normal limits. OTHER FINDINGS: None. IMPRESSION: 1. Findings most consistent with chronic microvascular ischemic disease. 2. No evidence of an intracranial mass or enhancing lesion. Specifically, no enhancing lesion is see n in the region of the left IAC. DATA REPOSITORY:
== END ==
PROVIDERS: PCP Nurse Practitioner Family; Visit Provider Psychiatry & Neurology Neurology
DX: I67.82 Cerebral ischemia (principal)
CPT/HCPCS: 70553; 82565

== ENCOUNTER → 2024-01-08 10:40 | Outpatient (BNVA) | payer MEDICARE, BC, SELFPAY | PROVIDERS: PCP Nurse Practitioner Family; Referring Provider Nurse Practitioner Family; Visit Provider Psychiatry & Neurology Neurology | DX: G51.39 Clonic hemifacial spasm, unspecified (principal) | CPT/HCPCS: 99213 ==

== ENCOUNTER 2024-04-22 01:29 | Outpatient (CLI) | payer MEDICARE, BC, SELFPAY ==
--- NOTE | 2024-04-22 | DI.DEXA_ITS ---
Exam(s) XR DEXA BONE DENSITY W/WO HANS EXAM: XR DEXA BONE DENSITY W/WO HANS CLINICAL HISTORY: Asymptomatic postmenopausal state, Z78.0 TECHNIQUE: COMPARISON: No exams were available for comparison FINDINGS: Lateral Spine Image: Unremarkable. No compression deformities identified. Left hip: Total T-Score: -2.1 Total Z-Score: -0.3 T- and Z-scores: Findings are consistent with osteopenia. There is osteoporosis in the femoral neck with a T-score of -2.7. Lumbar Spine: Total T-Score: -0.8 Total Z-Score: 1.6 T- and Z-scores: Within normal limits. Left forearm: Total T-score:-2.3 Total Z-score: 0.3 T and Z-score is: Findings are consistent with osteopenia. There is osteoporosis in the left forearm in the proximal 3rd with a T-score of -2.8. IMPRESSION: Osteoporosis seen in the left femoral neck and the left forearm as described above.
== END 2024-04-22 01:49 ==
PROVIDERS: PCP Nurse Practitioner Family; Visit Provider Family Medicine
DX: Z78.0 Asymptomatic menopausal state (principal); Z13.820 Encounter for screening for osteoporosis; M81.0 Age-related osteoporosis without current pathological fracture
CPT/HCPCS: 77080

== ENCOUNTER 2024-05-02 16:53 | Outpatient (REF) | payer MEDICARE, BC, SELFPAY ==
[2024-05-02 21:54] LABS: Anion Gap 10.1 mmol/L (3-11); BUN 24 mg/dL (7-18); CO2 26.9 mmol/L (21.0-32.0); CREATININE 1.1 mg/dL (0.55-1.02); Calcium 9.1 mg/dL (8.5-10.1); Chloride 107 mmol/L (98-107); Glucose 88 mg/dL (74-106); Potassium 4.2 mmol/L (3.5-5.1); Sodium 144 mmol/L (136-145); Vitamin D 25 Total 26.5 ng/mL (30-100)
== END 2024-05-02 16:54 | disposition home or self-care (01) ==
LOC: NCHCN 16:53
PROVIDERS: PCP Nurse Practitioner Family; Visit Provider Family Medicine
DX: M81.0 Age-related osteoporosis without current pathological fracture (principal)
CPT/HCPCS: 80048; 82306

== ENCOUNTER → 2024-07-09 09:01 | Outpatient (BNVA) | payer MEDICARE, BC, SELFPAY | PROVIDERS: PCP Nurse Practitioner Family; Visit Provider Psychiatry & Neurology Neurology | DX: G51.39 Clonic hemifacial spasm, unspecified (principal) | CPT/HCPCS: 99213 ==

== ENCOUNTER → 2024-08-21 08:22 | Outpatient (BNVA) | payer MEDICARE, BC, SELFPAY | PROVIDERS: PCP Nurse Practitioner Family; Referring Provider Family Medicine; Visit Provider Nurse Practitioner Gerontology | DX: R33.8 Other retention of urine (principal); R31.29 Other microscopic hematuria; N39.41 Urge incontinence | CPT/HCPCS: 51798; 81003; 99214 ==

== ENCOUNTER 2024-09-04 02:03 | Outpatient (CLI) | payer MEDICARE, BC, SELFPAY ==
--- NOTE | 2024-09-04 06:30 | DI.US_ITS ---
Exam(s) US RENAL EXAM: US RENAL CLINICAL HISTORY: elevated PVR,urine and urge incontinence,incomplete emptying,r33.9,r32,. TECHNIQUE: Hernández scale, color and spectral Doppler were used. COMPARISON: US US RENAL from 04/07/2021 FINDINGS: Right kidney: 9.1 x 5.0 x 6.0cm Echogenicity: Normal Hydronephrosis: No Cyst or mass: 12 millimeter parapelvic cyst. Nephrolithiasis: No Left kidney: 10.0 x 3.7 x 4.7cm Echogenicity: Normal Hydronephrosis: No Cyst or mass: No Nephrolithiasis: No Bladder:Normal. Prevoid vol:214 cc Postvoid vol:75 cc IMPRESSION: Moderately elevated postvoid residual is 75 cc. No evidence of hydronephrosis DATA REPOSITORY:
== END 2024-09-04 02:23 ==
LOC: DI 02:03
PROVIDERS: PCP Nurse Practitioner Family; Visit Provider Nurse Practitioner Gerontology
DX: N39.41 Urge incontinence
CPT/HCPCS: 76770

== ENCOUNTER 2024-09-04 03:56 | Outpatient (CLI) | payer MEDICARE, BC, SELFPAY ==
[2024-09-04 09:28] LABS: BUN 16 mg/dL (7-18); CREATININE 0.8 mg/dL (0.55-1.02); Estimated GFR 76.31 (mL/min/1.73m2)
== END 2024-09-04 03:57 | disposition home or self-care (01) ==
LOC: LBO 03:56
PROVIDERS: PCP Nurse Practitioner Family; Visit Provider Nurse Practitioner Gerontology
DX: R33.9 Retention of urine, unspecified (principal); N39.41 Urge incontinence
CPT/HCPCS: 36415; 76770; 84520; 82565

== ENCOUNTER 2024-09-05 22:13 | Outpatient (REF) | payer MEDICARE, BC, SELFPAY | END 2024-09-05 22:14 | disposition home or self-care (01) | LOC: NCHCN 22:13 | PROVIDERS: PCP Nurse Practitioner Family; Visit Provider Family Medicine | DX: R30.0 Dysuria (principal); B96.1 Klebsiella pneumoniae [K. pneumoniae] as the cause of diseases classified elsewhere | CPT/HCPCS: 87077; 87086; 87186 ==

== ENCOUNTER 2024-09-30 15:15 | Outpatient (REF) | payer MEDICARE, BC, SELFPAY ==
[2024-09-30 21:31] LABS: Bilirubin Negative (Negative); Blood Trace-intact (Negative); Clarity Clear (Clear); Glucose Negative (Negative); Ketones Negative (Negative); Leukocyte Esterase Trace (Negative); Nitrite Negative (Negative); Urobilinogen 0.2 mg/dL (Up to 0.2)
[2024-09-30 21:44] LABS: Bacteria Rare HPF (Negative); C & S Indicated? No; Casts Negative LPF (Negative); Crystals Negative HPF (Negative); Epithelial Cells Few HPF (Negative); Mucus Negative (Negative); WBC 0-2 HPF (0-5)
== END 2024-09-30 15:16 | disposition home or self-care (01) ==
LOC: NCHCN 15:15
PROVIDERS: PCP Nurse Practitioner Family; Visit Provider Family Medicine
DX: N39.0 Urinary tract infection, site not specified (principal); B96.1 Klebsiella pneumoniae [K. pneumoniae] as the cause of diseases classified elsewhere
CPT/HCPCS: 81003; 81015

== ENCOUNTER 2024-10-09 16:50 | Outpatient (REF) | payer MEDICARE, BC, SELFPAY | END 2024-10-09 16:51 | disposition home or self-care (01) | LOC: NCHCN 16:50 | PROVIDERS: PCP Nurse Practitioner Family; Visit Provider Family Medicine | DX: R39.9 Unspecified symptoms and signs involving the genitourinary system (principal) | CPT/HCPCS: 87086 ==

== ENCOUNTER 2024-10-28 10:50 | Outpatient (REF) | payer MEDICARE, BC, SELFPAY | END 2024-10-28 10:51 | disposition home or self-care (01) | LOC: NCHCN 10:50 | PROVIDERS: PCP Nurse Practitioner Family; Visit Provider Family Medicine | DX: R39.9 Unspecified symptoms and signs involving the genitourinary system (principal); B96.29 Other Escherichia coli [E. coli] as the cause of diseases classified elsewhere | CPT/HCPCS: 87077; 87086; 87186 ==

== ENCOUNTER 2025-01-15 15:24 | Outpatient (REF) | payer MEDICARE, BC, SELFPAY | END 2025-01-15 15:25 | disposition home or self-care (01) | LOC: NCHCN 15:24 | PROVIDERS: PCP Nurse Practitioner Family; Visit Provider Family Medicine | DX: N39.0 Urinary tract infection, site not specified (principal) | CPT/HCPCS: 87077; 87086; 87186 ==

== ENCOUNTER 2025-02-01 17:26 | Outpatient (REF) | payer MEDICARE, BC, SELFPAY | END 2025-02-01 17:27 | disposition home or self-care (01) | LOC: LBN 17:26 | PROVIDERS: PCP Nurse Practitioner Family; Visit Provider Family Medicine | DX: N39.0 Urinary tract infection, site not specified (principal) | CPT/HCPCS: 87077; 87086; 87186 ==

== ENCOUNTER 2025-02-21 13:22 | Outpatient (REF) | payer MEDICARE, BC, SELFPAY ==
[2025-02-21 14:21] LABS: Glucose Negative (Negative)
[2025-02-21 16:32] LABS: RBC Negative HPF (0-2); WBC >50 HPF (0-5)
== END 2025-02-21 13:23 | disposition home or self-care (01) ==
LOC: NCHCN 13:22
PROVIDERS: PCP Nurse Practitioner Family; Visit Provider Family Medicine
DX: N39.0 Urinary tract infection, site not specified (principal); B96.1 Klebsiella pneumoniae [K. pneumoniae] as the cause of diseases classified elsewhere
CPT/HCPCS: 87077; 81003; 81015; 87086; 87186

== ENCOUNTER 2025-02-28 12:20 | Outpatient (REF) | payer MEDICARE, BC, SELFPAY | END 2025-02-28 12:21 | disposition home or self-care (01) | LOC: NCHCN 12:20 | PROVIDERS: PCP Nurse Practitioner Family; Visit Provider Family Medicine | DX: N39.0 Urinary tract infection, site not specified (principal) | CPT/HCPCS: 87077; 87086; 87186 ==

== ENCOUNTER → 2025-03-04 07:38 | Outpatient (BNVA) | payer MEDICARE, BC, SELFPAY | PROVIDERS: PCP Nurse Practitioner Family; Referring Provider Nurse Practitioner Family; Visit Provider Nurse Practitioner Gerontology | DX: R33.9 Retention of urine, unspecified (principal); N95.2 Postmenopausal atrophic vaginitis; N39.46 Mixed incontinence; N39.0 Urinary tract infection, site not specified | CPT/HCPCS: 99213 ==

== ENCOUNTER 2025-03-11 18:07 | Outpatient (REF) | payer MEDICARE, BC, SELFPAY ==
[2025-03-11 15:04] LABS: Glucose Negative (Negative)
[2025-03-11 15:12] LABS: RBC Negative HPF (0-2); WBC 0-2 HPF (0-5)
== END 2025-03-11 18:08 | disposition home or self-care (01) ==
LOC: NCHCN 18:07
PROVIDERS: PCP Nurse Practitioner Family; Visit Provider Family Medicine
DX: N39.0 Urinary tract infection, site not specified (principal); R82.89 Other abnormal findings on cytological and histological examination of urine
CPT/HCPCS: 87077; 81003; 81015; 87086; 87186

== ENCOUNTER 2025-03-24 19:34 | Outpatient (REF) | payer MEDICARE, BC, SELFPAY ==
[2025-03-24 19:47] LABS: Glucose Negative (Negative)
== END 2025-03-24 19:35 | disposition home or self-care (01) ==
LOC: NCHCN 19:34
PROVIDERS: PCP Nurse Practitioner Family; Visit Provider Family Medicine
DX: N39.0 Urinary tract infection, site not specified (principal)
CPT/HCPCS: 81003

== ENCOUNTER 2025-04-02 22:03 | Outpatient (REF) | payer MEDICARE, BC, SELFPAY | END 2025-04-02 22:04 | disposition home or self-care (01) | LOC: NCHCN 22:03 | PROVIDERS: PCP Nurse Practitioner Family; Visit Provider Family Medicine | DX: R30.0 Dysuria (principal) | CPT/HCPCS: 87077; 87086; 87186 ==

== ENCOUNTER 2025-04-09 21:06 | Outpatient (REF) | payer MEDICARE, BC, SELFPAY | END 2025-04-09 21:07 | disposition home or self-care (01) | LOC: NCHCN 21:06 | PROVIDERS: PCP Nurse Practitioner Family; Visit Provider Family Medicine | DX: R30.0 Dysuria (principal) | CPT/HCPCS: 87480; 87510; 87660 ==

== ENCOUNTER 2025-04-17 18:45 | Outpatient (REF) | payer MEDICARE, BC, SELFPAY ==
[2025-04-17 18:56] LABS: Anion Gap 8.8 mmol/L (3-11); BUN 16 mg/dL (7-18); CO2 28.2 mmol/L (21.0-32.0); Calcium 9.0 mg/dL (8.5-10.1); Chloride 105 mmol/L (98-107); Cholesterol 234 mg/dL (<200); Glucose 92 mg/dL (74-106); HDL Cholesterol 97 mg/dL (>or=50); Potassium 3.7 mmol/L (3.5-5.1); Sodium 142 mmol/L (136-145); Vitamin D 25 Total 33 ng/mL (30-100)
[2025-04-18 21:48] LABS: Hepatitis C Ab w Rflx HCV PCR Negative (Negative)
== END 2025-04-17 18:46 | disposition home or self-care (01) ==
LOC: NCHCN 18:45
PROVIDERS: PCP Nurse Practitioner Family; Visit Provider Family Medicine
DX: M81.0 Age-related osteoporosis without current pathological fracture (principal); Z13.220 Encounter for screening for lipoid disorders; Z11.59 Encounter for screening for other viral diseases
CPT/HCPCS: 80048; 80061; 82306; 86803

== ENCOUNTER → 2025-05-20 00:23 | Outpatient (CLI) | payer MEDICARE, BC, SELFPAY ==
--- NOTE | 2025-05-20 | DI.MAMMO_ITS ---
Exam(s) MAMMO SCREENING EXAM: MAMMO SCREENING CLINICAL HISTORY: SCREENING, Z12.31. TECHNIQUE: Bilateral full field digital CC and MLO mammographic images were obtained with 3D tomosynthesis and utilizing computer aided detection (CAD). COMPARISON: Prior mammograms were reviewed. FINDINGS: The fibroglandular tissue pattern is again noted to be heterogeneously dense somewhat nodular.. There are no new obvious spiculated masses nor malignant appearing microcalcification groups. There is no significant architectural distortion nor skin thickening-retraction. IMPRESSION: No radiographic evidence of malignancy. BI-RADS Category 1 - Negative Breast Density - Category C - The breast are heterogeneously dense, which may obscure small masses. Breast density Category C or D implies that the patient has dense breast tissue. Dense breast tissue can make it harder to find cancer on a mammogram. Dense breast tissue is also associated with an increased risk of breast cancer. This information about the result of the mammogram report was provided to the patient to raise their awareness. Use this report when you speak with the patient about their risks for breast cancer, which includes their family history. At that time, you may recommend additional screening tests (Ultrasound or MRI) as these tests may add significant information. A negative radiographic report should not delay biopsy if a dominant or clinically suspicious mass is present. Up to ten percent of cancers are not identified on mammography. A negative report may reinforce clinical impression. Adenosis and dense breasts may obscure an underlying neoplasm. False positive reports average 6 to 10%. Patient will receive a letter notifying them of these results.
== END ==
PROVIDERS: PCP Nurse Practitioner Family; Visit Provider Family Medicine
DX: Z12.31 Encounter for screening mammogram for malignant neoplasm of breast (principal); R92.333 Mammographic heterogeneous density, bilateral breasts
CPT/HCPCS: 77063; 77067

== ENCOUNTER → 2025-06-03 09:00 | Outpatient (BNVA) | payer MEDICARE, BC, SELFPAY | PROVIDERS: PCP Nurse Practitioner Family; Referring Provider Nurse Practitioner Family; Visit Provider Nurse Practitioner Gerontology | DX: R31.29 Other microscopic hematuria (principal); N39.46 Mixed incontinence; R33.9 Retention of urine, unspecified; N81.10 Cystocele, unspecified; Z80.52 Family history of malignant neoplasm of bladder | CPT/HCPCS: 99215 ==